=== PATIENT | female | born 1975 | race Hispanic/Latino ===

== ENCOUNTER 2017-07-25 23:18 | Inpatient (IN) | payer OTHER ==
[2017-07-25] MEDS ORDERED: MEPERIDINE HCL 25 MG/0.5 ML IV PRN (23:41)
[2017-07-25] MEDS ORDERED: ONDANSETRON 4 MG/2 ML VIAL IV PRN (23:41)
[2017-07-25 23:57] VITALS: BMI 30.2
[2017-07-26] MEDS: Ringers Lactate 1,000 ML IV SCH ×4 (00:29→23:45)
[2017-07-26] MEDS: PIPER/TAZO/NS 3.375gm 3.375 GM/100 ML BAG IVPB SCH ×4 (01:33→16:51)
[2017-07-26] MEDS ORDERED: PIPER/TAZO/NS 3.375gm 6.750 GM/200 ML BAG ONE (01:39)
[2017-07-26 05:04] LABS: Absolute Lymphocytes (CBC) 2.2 K/uL (0.7-4.9); Absolute Monocytes 1.2 K/uL (0.1-1.3); Absolute Neutrophil 5.8 K/uL (1.8-8.0); Basophils % 0.5 % (0-1.3); Eosinophils % 1.3 % (0-4.4); Hematocrit 33.9 % (36.0-45.0); Lymphocytes % 23.1 % (15.3-44.8); MCH 30.4 pg (27.0-35.0); MCV 91.4 fL (80-100); MPV 9.5 fL (7.6-11.3); RBC Red Blood Cell Count 3.71 M/uL (3.86-4.86)
[2017-07-26 05:25] LABS: ALT/SGPT 42 IU/L (10-60); AST/SGOT 31 IU/L (10-42); Albumin 3.1 g/dL (3.2-5.5); Alkaline Phosphatase 52 IU/L (42-121); Amylase Level 38 U/L (28-100); BUN Blood Urea Nitrogen 14 mg/dL (6-20); Bicarbonate 25 mEq/L (21-31); Bilirubin Direct 0.2 mg/dL (0-0.2); Bilirubin Total 1.1 mg/dL (0.3-1.2); Glomerular Filtration Rate > 90 mL/min (=/>90); Glucose Level 109 mg/dL (65-120); Lipase 21 U/L (22-51); Magnesium 1.8 mg/dL (1.8-2.5); Phosphorus 2.2 mg/dL (2.5-4.3); Potassium 3.8 mEq/L (3.6-5.0); Protein, Total 5.5 g/dL (6.0-8.3); Sodium Level 136 mEq/L (135-145)
[2017-07-26] MEDS ORDERED: BUPIVACAINE 0.5% PF 10 ML VIAL ONE (08:54)
[2017-07-26] MEDS ORDERED: FENTANYL CITR 100 MCG/2 ML ONE ×2 (10:15→11:34)
[2017-07-26] MEDS ORDERED: PROPOFOL 200 MG/20 ML VIAL IV ONE (10:15)
[2017-07-26] MEDS ORDERED: LIDOCAINE 2% MPF 5 ML VIAL ONE (10:15)
[2017-07-26] MEDS ORDERED: ROCURONIUM 50 MG/5 ML VIAL IV ONE (10:15)
[2017-07-26] MEDS ORDERED: KETOROLAC 30 MG/ML INJ ONE (10:38)
[2017-07-26] MEDS ORDERED: DEXAMETHASONE 10 MG/ML VIAL ONE (10:38)
[2017-07-26] MEDS ORDERED: ONDANSETRON 4 MG/2 ML VIAL ONE (10:39)
[2017-07-26] MEDS ORDERED: GLYCOPYRROLATE 0.2 MG/ML SYR ONE (10:48)
[2017-07-26] MEDS ORDERED: NEOSTIGMINE 1 MG/ML -5 ML SYRINGE ONE (10:48)
--- NOTE | 2017-07-26 12:09 | P.OP ---
Emergency Communications Operator: aBrbara BARRETO Preoperative diagnosis: Acute Cholecystitis and Cholelithiasis Postoperative diagnosis: same Primary procedure: Lap Lynne Anesthesia: General Estimated blood loss: 200cc Specimen: gb Findings: as above with Hydrops and extensive inflammation Complications: None Transferred to: Recovery Room Condition: Good
[2017-07-26] MEDS ORDERED: Ringers Lactate 1,000 ML IV ONE ×2 (12:46→13:47)
[2017-07-26] MEDS ORDERED: MEPERIDINE HCL 25 MG/0.5 ML ONE ×3 (12:51→13:11)
[2017-07-26] MEDS ORDERED: ONDANSETRON 4 MG/2 ML VIAL IV PRN (12:59)
[2017-07-26] MEDS ORDERED: MAGNESIUM SULFATE 1 gm IVPB 1 GM/100 ML BAG IV ONE (13:30)
[2017-07-26] MEDS ORDERED: POTASSIUM CL SA 10 MEQ TAB PO ONE (13:30)
--- NOTE | 2017-07-26 13:46 | PREOPHP ---
Date of Admission: 07/25/2017 Chief Complaint: Abdominal pain. History Of Present Illness: The patient is a 42-year-old female, who had midscapular pain and right upper quadrant pain for increasing in severity over 2 days and then she was evaluated with on and was thought to be a musculoskeletal pain; however, she had a fever. She returned, t hey they did an ultrasound and chest x-ray and EKG and the findings were for acute cholecystitis and cholelithiasis. I was contacted. I admitted the patient to our service and started her on antibioti cs and she requires cholecystectomy. She states that she has had some nausea earlier and some fever, but no vomiting, no diarrhea or constipation. No blood in her stool. No dysuria or hematuria. No sore throat, runny nose, cough, headaches, or dizziness. No chest pain and no further fevers. Review of Systems: Otherwise unremarkable. Past Medical History: The patient states that she is prediabetic although she is not taking any sign ificant medications for it. Past Surgical History: Negative. Allergies: NO ALLERGIES. Social History: She does not smoke. Drinks occasionally. Family History: Noncontributory. Physical Examination: Vital Signs: Stable. Her temperature is 98.3, it was 99 last night. She is awake, alert, and orien bernadine x3. Head and Neck: Cranial nerves 2 through 12 grossly within normal limits. No neck masses. No JVD. Throat clear. Neck is supple. Chest: Clear. Heart: S1, S2. Abdomen: Soft, nondistended. Positive bowel sounds. Tenderness in the right upper quadrant. No pe ritonitis. Extremities: Adequately perfused. Nontender. Neuro: Nonfocal. Laboratory Data: Her white count last night was 12,000, today is 9.4. LFT, amylase, lipase, within normal limits. Phosphorus slightly low at 2.2. Ultrasound reviewed, it showed a distended gallbladd er with thickened gallbladder wall and stones. Assessment: Acute cholecystitis and cholelithiasis. Plan: Admit n.p.o., IV fluids, IV antibiotics, to the OR for laparoscopic cholecystectomy, possible open. The patient and understands the risks, benefits, and alternatives, and agrees to proce dure. HALLIE/MODL Voice ID: [id number]
[2017-07-26] MEDS: HYDROCODONE/APAP 7.5/325 MG TAB PO PRN ×2 (15:00→21:35)
--- NOTE | 2017-07-26 23:04 | OP ---
Date of Procedure: 07/26/2017 Surgeon: Jesús Mendoza MD Section Leader Screen Printing: Nadya Manuel, certified LOCKMAKER. Preoperative Diagnosis: Acute cholecystitis and cholelithiasis. Postoperative Diagnosis: Acute cholecystitis and cholelithiasis. Procedure: Laparoscopic cholecystectomy. Estimated Blood Loss: Minimal. Specimen: Gallbladder. Findings: Extensive inflammation, hydrops of the gallbladder. Anesthesia: General. Complications: None. Disposition: The patient tolerated the procedure in stable condition and taken to Recovery in good g eneral condition. Procedure In Detail: The patient was brought to the OR and placed in supine position. General anest hesia begun. The patient was prepped and draped in usual sterile fashion. Marcaine 0.5% was infiltr ated locally. A 15-blade was used to make a 1-cm supraumbilical midline incision. Subcutaneous tiss ues divided. Fascia and plane divided. #1 Vicryl stay suture was placed. Peritoneal cavity was ent ered with blunt dissection. A 12-mm trocar was placed into the peritoneal cavity under direct vision . Pneumoperitoneum was established and then three 5-mm trocars were placed; one in the epigastrium j ust to the right of midline and two in the right subcostal region. Laparoscopy revealed a severely d istended gallbladder with thickened wall. It was aspirated of hydrops. Then fundus retracted superi christiano, infundibulum identified, retracted inferolaterally. Cystic duct and cystic artery were clearly identified with blunt dissection. Clips placed. There was a lot of inflammatory rind present. Onc e the gallbladder was removed from the this rind, there was some oozing noted. Most of it was contro lled with cautery. The gallbladder was removed from the liver bed and then removed through the belly button with the EndoCatch bag. The fascial defect had to be extended because the gallbladder was la rge, filled with stone. Subsequently right upper quadrant was irrigated. There was some bleeding no bernadine and this was thoroughly irrigated until all cautery was used to stop the oozing from the inflamma tory rind that was present on the liver bed. Once adequate control of this was made, I placed 2 Surg icel to be safe and after this, the effluent was clear. There was no evidence of bleeding noted. Th ere was no evidence of bile leakage appreciated. Subsequently, all trocars were removed under direct vision. A #1 Vicryl used to close the fascial defect. Subcutaneous wounds were irrigated. Bleedin g controlled with cautery. A 3-0 chromic used to approximate the subcutaneous tissue and close the s kin. Sterile dressing was applied. The patient was awakened and taken to Recovery in good general c ondition. . /MODL Voice ID: [id number] Report ID: [id number]
[2017-07-27] MEDS: PIPER/TAZO/NS 3.375gm 3.375 GM/100 ML BAG IVPB SCH ×3 (00:45→16:25)
[2017-07-27] MEDS: HYDROCODONE/APAP 7.5/325 MG TAB PO PRN ×2 (01:46→16:24)
[2017-07-27 04:55] LABS: Absolute Lymphocytes (CBC) 0.9 K/uL (0.7-4.9); Absolute Monocytes 1.1 K/uL (0.1-1.3); Basophils % 0.2 % (0-1.3); Hematocrit 35.4 % (36.0-45.0); Lymphocytes % 5.1 % (15.3-44.8); MCH 30.8 pg (27.0-35.0); MCV 90.7 fL (80-100); MPV 9.3 fL (7.6-11.3); Monocytes % 5.9 % (3.3-12.3)
[2017-07-27 05:23] LABS: Blood Morphology Comment NOT SEEN (NOT SEEN); Platelet Estimate ADEQ; Urine White Blood Cell Casts OK
[2017-07-27 05:28] LABS: BUN Blood Urea Nitrogen 8 mg/dL (6-20); Bicarbonate 26 mEq/L (21-31); Glomerular Filtration Rate > 90 mL/min (=/>90); Glucose Level 148 mg/dL (65-120); Magnesium 2.1 mg/dL (1.8-2.5); Phosphorus 1.9 mg/dL (2.5-4.3); Potassium 4.3 mEq/L (3.6-5.0); Sodium Level 134 mEq/L (135-145)
[2017-07-27] MEDS: POTASS/SODIUM PHOSPHATE 1 PKT POWD.PACK PO SCH ×3 (06:15→10:01)
[2017-07-27] MEDS ORDERED: PNEUMOCOCCAL VACCINE 0.5 ML IMVAC ONE (08:00)
[2017-07-27] MEDS: Ringers Lactate 1,000 ML IV SCH ×2 (08:14→15:45)
--- NOTE | 2017-07-27 14:57 | PN ---
Date of Progress Note: 07/27/2017 Subjective: The patient is awake, alert, tolerating diet. The pain is very manageable. She is ambu lating. Objective: Vital Signs: Stable. She is afebrile. Abdomen: Benign. Laboratory Data: Reviewed. White count is 18,000 today with a left shift. H and H are stable. Assessment: Status post laparoscopic cholecystectomy for acute cholecystitis and cholelithiasis. Recommendation: As she still has significant leukocytosis, we will keep her another day for IV antib iotics. Re-evaluate tomorrow and probably we will discharge her home on oral antibiotics. /MODL Voice ID: [id number] Report ID: [id number]
[2017-07-28] MEDS: PIPER/TAZO/NS 3.375gm 3.375 GM/100 ML BAG IVPB SCH ×3 (00:28→16:57)
[2017-07-28] MEDS: Ringers Lactate 1,000 ML IV SCH ×4 (00:28→23:45)
[2017-07-28 04:25] LABS: Absolute Lymphocytes (CBC) 2.6 K/uL (0.7-4.9); Absolute Monocytes 0.9 K/uL (0.1-1.3); Absolute Neutrophil 7.4 K/uL (1.8-8.0); Basophils % 0.9 % (0-1.3); Eosinophils % 0.3 % (0-4.4); Hematocrit 32.5 % (36.0-45.0); Lymphocytes % 23.8 % (15.3-44.8); MCH 30.9 pg (27.0-35.0); MCV 90.4 fL (80-100); MPV 8.9 fL (7.6-11.3); Monocytes % 8.2 % (3.3-12.3); RBC Red Blood Cell Count 3.59 M/uL (3.86-4.86)
[2017-07-28 05:07] LABS: BUN Blood Urea Nitrogen 10 mg/dL (6-20); Bicarbonate 27 mEq/L (21-31); Glomerular Filtration Rate > 90 mL/min (=/>90); Glucose Level 107 mg/dL (65-120); Magnesium 1.9 mg/dL (1.8-2.5); Potassium 4.1 mEq/L (3.6-5.0); Sodium Level 137 mEq/L (135-145)
[2017-07-28] MEDS ORDERED: POTASS/SODIUM PHOSPHATE 1 PKT POWD.PACK PO SCH ×2 (06:19→07:00)
[2017-07-28] MEDS: POTASS/SODIUM PHOSPHATE 1 PKT POWD.PACK PO SCH ×3 (07:00→10:41)
[2017-07-28] MEDS: HYDROCODONE/APAP 7.5/325 MG TAB PO PRN ×2 (08:25→18:18)
[2017-07-28] MEDS ORDERED: ACETAMINOPHEN 500 MG TAB PO PRN (11:04)
--- NOTE | 2017-07-28 15:49 | PN ---
Date of Progress Note: 07/28/2017 Subjective: The patient is tolerating the diet. No real abdominal pain. No nausea. No vomiting. However, she has had low-grade fevers. Objective: Vital Signs: Stable. Temperature was 99.5 this morning. Laboratory Data: Her white count has come down to 11.1. There is no left shift anymore. Assessment: Status post laparoscopic cholecystectomy for acute cholecystitis and cholelithiasis. Recommendations: We will keep the patient 1 more day for IV antibiotics as her clinical condition mccullough s markedly improved. However, the low-grade fever is a concern, and I will keep her on IV antibiotic s today. We will re-evaluate tomorrow and probably send her home on oral antibiotics. /MODL Voice ID: [id number] Report ID: [id number]
[2017-07-28 17:36] VITALS: O2SAT 96
[2017-07-29] MEDS: Ringers Lactate 1,000 ML IV SCH ×2 (00:49→07:45)
[2017-07-29] MEDS: PIPER/TAZO/NS 3.375gm 3.375 GM/100 ML BAG IVPB SCH ×2 (00:52→08:20)
[2017-07-29 06:04] LABS: Absolute Lymphocytes (CBC) 2.4 K/uL (0.7-4.9); Absolute Monocytes 0.8 K/uL (0.1-1.3); Absolute Neutrophil 5.1 K/uL (1.8-8.0); Basophils % 0.7 % (0-1.3); Eosinophils % 0.7 % (0-4.4); Hematocrit 34.7 % (36.0-45.0); Lymphocytes % 28.2 % (15.3-44.8); MCH 30.5 pg (27.0-35.0); MPV 8.7 fL (7.6-11.3); Monocytes % 9.3 % (3.3-12.3); RBC Red Blood Cell Count 3.81 M/uL (3.86-4.86)
[2017-07-29 06:17] LABS: BUN Blood Urea Nitrogen 9 mg/dL (6-20); Bicarbonate 28 mEq/L (21-31); Glomerular Filtration Rate > 90 mL/min (=/>90); Glucose Level 99 mg/dL (65-120); Phosphorus 3.9 mg/dL (2.5-4.3); Potassium 4.2 mEq/L (3.6-5.0); Sodium Level 135 mEq/L (135-145)
[2017-07-29 09:12] VITALS: BP 119/73; TEMP 99.1
--- NOTE | 2017-07-30 03:27 | DS ---
Date of Discharge: 07/29/2017 Admitting Diagnosis: Acute cholecystitis and cholelithiasis. Discharge Diagnosis: Acute cholecystitis and cholelithiasis. Procedure Performed: Laparoscopic cholecystectomy. Hospital Course: The patient is a 42-year-old female, who underwent the aforementioned procedure. P ostoperatively, however, she had significant leukocytosis, was kept for IV antibiotics. She did also have low grade fever. They have all improved and today, she is afebrile. She is tolerating diet an d ambulating. White count is normal. Pain are controlled on p.o. pain medication. Therefore, the p atient will be discharged home. Disposition: Home. Condition: Stable. Discharge Instructions: Resume home medications and diet. Activity as tolerated. No heavy lifting. Remove outer dressing in a.m. Shower. Keep wound clean and dry. Follow up in my office in 2 week s. Call for appointment. Tylenol No. 3 one tablet p.o. q.4 p.r.n. pain, Cipro 500 mg p.o. q.12. /MODL Voice ID: [id number] Report ID: [id number]
== END 2017-07-29 11:27 | disposition home or self-care (01) | DRG 418 ==
LOC: 4TH 23:18
PROVIDERS: ADMIT Surgery; ATTEND Surgery
PROC: 0FT44ZZ Resection of Gallbladder, Percutaneous Endoscopic Approach (ICD-10-PCS; principal; 2017-07-26 10:00)
DX: K80.00 Calculus of gallbladder with acute cholecystitis without obstruction (principal); K82.1 Hydrops of gallbladder; D72.829 Elevated white blood cell count, unspecified
CPT/HCPCS: 36415; 80048; 80076; 82150; 83690; 83735; 84100; 85025; 88304; 88305; J1100; J2175; J2405; J2543; J2710; J3010; J3475

== ENCOUNTER 2020-06-14 08:00 | Emergency (ER) | payer OTHER ==
[2020-06-14 11:23] LABS: SARS-COV-2 RT PCR POSITIVE (NEGATIVE)
--- NOTE | 2020-06-14 11:27 | ER ---
Nurse's Notes [facility] Name: Nery Robertson Age: 45 yrs Sex: Female : 1975 Arrival Date: 06/14/2020 Time: 08:01 Bed 19 Private MD: Diagnosis: Coronavirus infection, unspecified Presentation: 06/14 08:42 Chief complaint: Patient states: body aches, cough, headache, and fever that began last aa5 night. Pt reports she took Aleve today at 0500. 08:42 Onset of symptoms was May 2020. aa5 08:42 Acuity: DANIELLE 4 aa5 08:42 Method Of Arrival: Ambulatory aa5 08:42 Coronavirus screen: Client presents with at least one sign or symptom that may indicate aa5 coronavirus-19. Standard/surgical mask placed on the client. Provider contacted for isolation considerations. Ebola Screen: Patient negative for fever greater than or equal to 101.5 degrees Fahrenheit, and additional compatible Ebola Virus Disease symptoms. Initial Sepsis Screen: Does the patient meet any 2 criteria? No. Patient's initial sepsis screen is negative. Does the patient have a suspected source of infection? No. Patient's initial sepsis screen is negative. Risk Assessment: Do you want to hurt yourself or someone else? Patient reports no desire to harm self or others. Triage Assessment: 09:00 General: Appears in no apparent distress. uncomfortable, ill, Behavior is cooperative, bp appropriate for age, anxious. Pain: Complains of pain in face. EENT: Nares with drainage noted. Neuro: Reports headache. Cardiovascular: No deficits noted. Respiratory: Reports cough that is. GI: No signs and/or symptoms were reported involving the gastrointestinal system. : No signs and/or symptoms were reported regarding the genitourinary system. Derm: No deficits noted. Musculoskeletal: No deficits noted. Historical: - Allergies: 08:42 No Known Allergies; aa5 - Immunization history:: Adult Immunizations up to date. - Family history:: not pertinent. - Social history:: Smoking status: Patient denies any tobacco usage or history of. - Hospitalizations: : No recent hospitalization is reported. Screenin:00 Abuse screen: Denies threats or abuse. Nutritional screening: No deficits noted. bp Tuberculosis screening: No symptoms or risk factors identified. Fall Risk None identified. Assessment: 09:00 General: SEE TRIAGE NOTE. bp 11:00 Reassessment: No changes from previously documented assessment. Patient and/or family bp updated on plan of care and expected duration. Pain level reassessed. 12:06 Reassessment: PT D/C HOME AMBULATORY, DX WITH COVID. bp Vital Signs: 08:42 BP 104 / 66; Pulse 85; Resp 18 S; Temp 99.7(O); Pulse Ox 100% on R/A; aa5 09:45 BP 119 / 82; Pulse 80; Resp 17; Temp 99.4(O); Pulse Ox 99% on R/A; mh5 10:48 BP 127 / 95; Pulse 75; Resp 17; Temp 99.5(O); Pulse Ox 99% on R/A; mh5 11:27 BP 113 / 72; Pulse 82; Resp 16; Pulse Ox 98% ; bp NIH Stroke Scale Scores: 09:00 NIHSS Score: 0 bp ED Course: 08:01 Patient arrived in ED. ag5 08:42 Balwinder Souza, RN is Primary Nurse. bp 08:42 Arm band placed on Patient placed in an exam room, on a stretcher. aa5 08:43 Nate Perez MD is Attending Physician. rn 09:03 Triage completed. aa5 09:45 Patient has correct armband on for positive identification. Bed in low position. Call 5 light in reach. Pulse ox on. NIBP on. 09:48 COVID swab sent to lab. Flu and/or RSV swab sent to lab. mh5 12:00 No provider procedures requiring assistance completed. Patient did not have IV access bp during this emergency room visit. Administered Medications: No medications were administered Outcome: 11:27 Discharge ordered by . rn 12:00 Discharged to home ambulatory. bp 12:00 Condition: stable 12:00 Discharge instructions given to patient, Instructed on discharge instructions, follow up and referral plans. medication usage, Demonstrated understanding of instructions, follow-up care, medications, Prescriptions given X 1. 12:08 Patient left the ED. bp NIH Stroke Scale - NIH Stroke Score Date: 06/14/2020 Time: 09:00 Total Score = 0 1a. Level of Consciousness (LOC) - 0(Alert) 1b. Level of Consciousness (LOC) (Year \T\ Age) - 0(Both) 1c. LOC Commands (Open \T\ Closes Eyes/Engineering Lab Technician) - 0(Both) 2. Best Gaze (Lateral Gaze Paresis) - 0(Normal) 3. Visual Field Loss - 0(No visual loss) 4. Facial Palsy - 0(Normal) 5a. Left Arm: Motor (10-second hold) - 0(No drift) 5b. Right Arm: Motor (10-second hold) - 0(No drift) 6a. Left Leg: Motor (5-second hold - always test supine) - 0(No drift) 6b. Right Leg: Motor (5-second hold - always test supine) - 0(No drift) 7. Limb Ataxia (finger/nose \T\ heel/steiner - test with eyes open) - 0(Absent) 8. Sensory Loss (pinprick arms/legs/face) - 0(Normal) 9. Best Language: Aphasia (description/naming/reading) - 0(No aphasia) 10. Dysarthria (speech clarity - read or repeat words) - 0(Normal) 11. Extinction and Inattention (visual/tactile/auditory/spatial/personal) - 0(No abnormality) Initials: bp Signatures: Nate Perez MD MD rn Calderon, Audri, RN RN aa5 Corrina Terry 5 Balwinder Souza RN RN bp Gaskin, Ajare ag5 Corrections: (The following items were deleted from the chart) 09:08 08:42 Chief complaint: Patient states: body aches, cough, headache that began aa5 last night. aa5
--- NOTE | 2020-06-14 11:28 | EDPHYS ---
Physician Documentation [facility] Name: Nery Robertson Age: 45 yrs Sex: Female : 1975 Arrival Date: 06/14/2020 Time: 08:01 Bed 19 Private MD: ED Physician Nate Perez HPI: 06/14 09:49 This 45 yrs old Female presents to ER via Ambulatory with complaints of R/O rn COVID. 09:49 The patient or guardian reports cough, flu symptoms, low-grade fever, myalgias. rn 09:49 Onset: The symptoms/episode began/occurred yesterday. Severity of symptoms: At their rn worst the symptoms were mild, in the emergency department the symptoms are unchanged. Modifying factors: The symptoms are alleviated by nothing, the symptoms are aggravated by nothing. Associated signs and symptoms: Pertinent positives: fever, rhinorrhea. The patient has not experienced similar symptoms in the past. The patient has not recently seen a physician. Reports fever, muscle aches, fatigue, cough, recently exposed to someone with COVID + test. No loss of taste or smell. No sob. No vomiting/diarrhea. . Historical: - Allergies: 08:42 No Known Allergies; aa5 - Immunization history:: Adult Immunizations up to date. - Family history:: not pertinent. - Social history:: Smoking status: Patient denies any tobacco usage or history of. - Hospitalizations: : No recent hospitalization is reported. ROS: 09:49 Constitutional: + fever and chills Eyes: Negative for injury, pain, redness, and patternmaker wood, ENT: + congestion Neck: Negative for injury, pain, and swelling, Cardiovascular: Negative for chest pain, palpitations, and edema, Respiratory: + cough, neg for sob Abdomen/GI: Negative for abdominal pain, nausea, vomiting, diarrhea, and constipation, MS/Extremity: Negative for injury and deformity, Skin: Negative for injury, rash, and discoloration, Neuro: Negative for numbness, tingling, and seizure. Exam: 09:49 Constitutional: This is a well developed, well nourished patient who is awake, alert, rn and in no acute distress. Head/Face: Normocephalic, atraumatic. Cardiovascular: Regular rate and rhythm Respiratory: Speaking full sentences, unlabored Skin: No cyanosis Neuro: Awake and alert, GCS 15 Vital Signs: 08:42 BP 104 / 66; Pulse 85; Resp 18 S; Temp 99.7(O); Pulse Ox 100% on R/A; aa5 09:45 BP 119 / 82; Pulse 80; Resp 17; Temp 99.4(O); Pulse Ox 99% on R/A; mh5 10:48 BP 127 / 95; Pulse 75; Resp 17; Temp 99.5(O); Pulse Ox 99% on R/A; mh5 11:27 BP 113 / 72; Pulse 82; Resp 16; Pulse Ox 98% ; bp NIH Stroke Scale Scores: 09:00 NIHSS Score: 0 bp MDM: 08:43 Patient medically screened. rn 11:26 Differential Diagnosis: Bronchitis Influenza Upper Respiratory Infection Viral Syndrome rn Pneumonia. Data reviewed: vital signs, nurses notes, lab test result(s), and as a result, I will discharge patient. Counseling: I had a detailed discussion with the patient and/or guardian regarding: the historical points, exam findings, and any diagnostic results supporting the discharge/admit diagnosis, lab results, the need for outpatient follow up, to return to the emergency department if symptoms worsen or persist or if there are any questions or concerns that arise at home. Special discussion: I discussed with the patient/guardian in detail that at this point there is no indication for admission to the hospital. It is understood, however, that if the symptoms persist or worsen the patient needs to return immediately for re-evaluation. ED course: No oxygen requirement, COVID +, will dc home with steroids and isolation.. 06/14 11:24 Order name: COVID-19/FLU A+B EDMS Administered Medications: No medications were administered Disposition: 06/14/20 11:27 Discharged to Home. Impression: Coronavirus infection, unspecified. - Condition is Stable. - Discharge Instructions: COVID-19. - Prescriptions for Prednisone 20 mg Oral Tablet - take 1 tablet by ORAL route as directed for 14 days Take 2 tablets by mouth daily for 7 days, followed by 1 tablet by mouth daily for 7 days, total of 14 days.; 21 tablet. - Medication Reconciliation Form, Thank You Letter, Antibiotic Education, Prescription Opioid Use, Work release form form. - Follow up: Private Physician; When: As needed; Reason: Recheck today's complaints, Re-evaluation by your physician. - Problem is new. - Symptoms have improved. NIH Stroke Scale - NIH Stroke Score Date: 06/14/2020 Time: 09:00 Total Score = 0 1a. Level of Consciousness (LOC) - 0(Alert) 1b. Level of Consciousness (LOC) (Year \T\ Age) - 0(Both) 1c. LOC Commands (Open \T\ Closes Eyes/[place] Frame Builder) - 0(Both) 2. Best Gaze (Lateral Gaze Paresis) - 0(Normal) 3. Visual Field Loss - 0(No visual loss) 4. Facial Palsy - 0(Normal) 5a. Left Arm: Motor (10-second hold) - 0(No drift) 5b. Right Arm: Motor (10-second hold) - 0(No drift) 6a. Left Leg: Motor (5-second hold - always test supine) - 0(No drift) 6b. Right Leg: Motor (5-second hold - always test supine) - 0(No drift) 7. Limb Ataxia (finger/nose \T\ heel/steiner - test with eyes open) - 0(Absent) 8. Sensory Loss (pinprick arms/legs/face) - 0(Normal) 9. Best Language: Aphasia (description/naming/reading) - 0(No aphasia) 10. Dysarthria (speech clarity - read or repeat words) - 0(Normal) 11. Extinction and Inattention (visual/tactile/auditory/spatial/personal) - 0(No abnormality) Initials: bp Signatures: Dispatcher [employer] EDMS Nate Perez MD MD rn Calderon, Audri, RN RN aa5 Balwinder Souza, RN RN bp Corrections: (The following items were deleted from the chart) 10:19 08:58 Influenza Screen (A \T\ B)+BA.LAB.BRZ ordered. EDMS EDMS 10:19 08:58 CORONAVIRUS+MR.LAB.BRZ ordered. EDSC EDMS 12:08 11:27 06/14/2020 11:27 Discharged to Home. Impression: Coronavirus infection, bp unspecified. Condition is Stable. Forms are Medication Reconciliation Form, Thank You Letter, Antibiotic Education, Prescription Opioid Use. Follow up: Private Physician; When: As needed; Reason: Recheck today's complaints, Re-evaluation by your physician. Problem is new. Symptoms have improved. rn
[2020-06-14 12:28] VITALS: TEMP 99.5
[2020-06-14 12:30] VITALS: BP 113/72; O2SAT 98
== END 2020-06-14 12:08 | disposition home or self-care (01) ==
LOC: ER 08:00
DX: U07.1 COVID-19 (principal)
CPT/HCPCS: 0240U; 99283

== ENCOUNTER 2020-06-24 01:49 | Inpatient (IN) | payer OTHER ==
[2020-06-24 02:35] LABS: Hematocrit 42.8 % (36.0-45.0); RBC Red Blood Cell Count 4.61 M/uL (3.86-4.86)
[2020-06-24] MEDS ORDERED: ACETAMINOPHEN 500 MG TAB ONE (02:35)
[2020-06-24] MEDS ORDERED: dexAMETHasone 10 MG/ML VIAL ONE (02:35)
[2020-06-24 02:36] LABS: Absolute Lymphocytes (CBC) 0.7 K/uL (0.7-4.9); Basophils % 0.2 % (0-1.3); Lymphocytes % 11.7 % (15.3-44.8); MPV 8.5 fL (7.6-11.3)
[2020-06-24] MEDS ORDERED: NA CHLORIDE 0.9% 2,000 ML ONE (02:36)
[2020-06-24 02:40] LABS: Protime INR 0.93
[2020-06-24] MEDS ORDERED: ALBUTEROL INHALER 60 PUFF/8 GM IH ONE (02:47)
[2020-06-24 02:50] LABS: ALT/SGPT 26 U/L (12-78); AST/SGOT 35 U/L (15-37); Albumin 3.1 g/dL (3.4-5.0); Alkaline Phosphatase 68 U/L (45-117); Amylase 49 U/L (25-115); BUN Blood Urea Nitrogen 17 mg/dL (7-18); Bicarbonate 26 mmol/L (21-32); Bilirubin Direct < 0.1 mg/dL (0-0.2); Bilirubin Total 0.2 mg/dL (0.2-1.0); CKMB Creatine Kinase MB < 1.0 ng/mL (0.3-3.6); Creatine Phosphokinase 41 U/L (26-192); Glucose Level 144 mg/dL (74-106); Lipase 124 U/L (73-393); Potassium 4.3 mmol/L (3.5-5.1); Protein, Total 8.5 g/dL (6.4-8.2); Sodium Level 145 mmol/L (136-145); Troponin (Emerg Dept Use Only) < 0.02 ng/mL (0.0-0.045)
[2020-06-24 03:04] LABS: Ferritin 224.9 ng/mL (8-388)
--- NOTE | 2020-06-24 03:14 | P.HP ---
Certification for Inpatient Patient admitted to: Inpatient With expected LOS: >2 Midnights Patient will require the following post-hospital care: None Practitioner: I am a practitioner with admitting privileges, knowledge of patient current condition, hospital course, and medical plan of care. Services: Services provided to patient in accordance with Admission requirements found in Title 42 Section 412.3 of the Code of Federal Regulations Patient History Date of Service: 06/24/20 History of Present Illness: 45-year-old female with history of diabetes mellitus type 2 not on any medications presents emergency department for shortness of breath. Patient diagnosed with foreman virus on 06/14/2020 with worsening shortness of breath over the course the last couple days. Upon arrival to the emergency department patient hypoxic 77% on room air, placed on BiPAP which she is tolerating well. Workup in the ED significant for initial lactic acid 4.9, patient did receive sepsis bolus in the emergency department D-dimer 1000 ED given full dose Lovenox in the ER pending CT PE protocol. ED provider wishes to admit patient for further evaluation and management. Allergies No Known Allergies Allergy (Verified 07/25/17 23:55) Home Medications: Dextroamphetamine/Amphetamine [Dextroamp-Amphetamin 20 mg Tab] 30 mg PO DIRECTED 07/25/17 Liraglutide [Victoza 2-Dustin] 1.6 mg SQ DAILY 07/25/17 Thyroid,Pork [Lucas Thyroid] 120 mg PO DAILY 07/25/17 Cyclobenzaprine HCl 10 mg PO TID 07/26/17 Ketorolac Tromethamine 10 mg PO TID 07/26/17 Triamterene/Hctz [Maxzide 37.5 mg-25 mg Tablet*] 2 tab PO DAILY PRN 07/26/17 - Past Medical/Surgical History Diabetic: Yes -: Hypothyroidism -: Diabetes -: Attention Deficit Disorder -: tubal ligation (2005) Psychosocial/ Personal History: Patient is employed, lives with her 3 children - Social History Smoking Status: Never smoker Alcohol use: Yes CD- Drugs: No Caffeine use: Yes Place of Residence: Home Review of Systems 10-point ROS is otherwise unremarkable General: Fever, Chills, Weakness, Malaise Respiratory: Cough, Shortness of Breath, SOB with Excertion Physical Examination - Physical Exam General: Alert, In no apparent distress, Oriented x3 HEENT: Atraumatic, PERRLA, Mucous membr. moist/pink, EOMI, Sclerae nonicteric Neck: Supple, 2+ carotid pulse no bruit, No LAD, Without JVD or thyroid abnormality Respiratory: Diminished, Other (Dyspnea, tachypnea) Cardiovascular: Regular rate/rhythm, Normal S1 S2 Capillary refill: <2 Seconds Gastrointestinal: Normal bowel sounds, No tenderness, No masses, No rebound Musculoskeletal: No tenderness Integumentary: No rashes Neurological: Normal speech, Normal strength at 5/5 x4 extr, Normal tone, Normal affect - Studies Laboratory Data (last 24 hrs) 06/24/20 02:12: PT 10.7, INR 0.93, APTT 25.3 06/24/20 02:12: WBC 6.10, Hgb 14.1, Hct 42.8, Plt Count 247 06/24/20 02:12: Sodium 145, Potassium 4.3, BUN 17, Creatinine 0.80, Glucose 144 H, Total Bilirubin 0.2, AST 35, ALT 26, Alkaline Phosphatase 68, Amylase 49, Lipase 124 Assessment and Plan - Plan Assessment Acute hypoxic respiratory failure secondary to COVID-19 pneumonia Diabetes mellitus type 2 Plan Acute hypoxic respiratory failure secondary to COVID-19 pneumonia: Trend CRP, ferritin levels, continue with IV steroids, oral supplementation. Pulmonology consult in place. Patient declined to receive Ivermectin. D-dimer significantly elevated, CT PE protocol pending, continue full-dose anticoagulation given full dose Lovenox in the ER, continue with Eliquis. Anticipate hospitalization greater than 2 days. Diabetes mellitus type 2: ADA diet, a.c. HS Accu-Cheks, sliding scale insulin therapy. A1c with morning labs. Patient not taking any medications at home. Discharge Plan: Home Plan to discharge in: Greater than 2 days - Advance Directives Does patient have a Living Will: No Does patient have a Durable POA for Healthcare: No - Code Status/Comfort Care Code Status Assessed: Yes (Full code) Critical Care: No Time Spent Managing Pts Care (In Minutes): 55
[2020-06-24] MEDS ORDERED: NA CHLORIDE 0.9% 250 ML ONE (03:15)
[2020-06-24] MEDS ORDERED: AZITHROMYCIN 500 MG INJ IVPB ONE (03:15)
[2020-06-24] MEDS ORDERED: CEFTRIAXONE/SWI 1gm 1 GM/10 ML SYR ONE (03:15)
[2020-06-24] MEDS ORDERED: ENOXAPARIN 80 MG/0.8 ML SQ ONE (03:19)
[2020-06-24] MEDS ORDERED: HYDROCODONE/APAP 5/325 MG TAB PO PRN (04:03)
[2020-06-24] MEDS ORDERED: ACETAMINOPHEN 500 MG TAB PO PRN (04:03)
[2020-06-24] MEDS ORDERED: D50W 25 GM/50 ML SYRINGE IV PRN (04:03)
[2020-06-24] MEDS ORDERED: ONDANSETRON 4 MG/2 ML VIAL IV PRN (04:03)
[2020-06-24] MEDS ORDERED: GLUCAGON 1 MG/VIAL IM PRN (04:03)
[2020-06-24 04:05] LABS: Urine Specific Gravity 1.025 (1.005-1.030)
--- NOTE | 2020-06-24 04:22 | EDPHYS ---
Physician Documentation [facility] Name: Nery Robertson Age: 45 yrs Sex: Female : 1975 Arrival Date: 06/24/2020 Time: 01:53 Bed 7 Private MD: ED Physician Asa Desouza HPI: 06/24 02:16 This 45 yrs old Female presents to ER via Wheelchair with complaints of mh7 Shortness Of Breath, COVID+. 02:17 The patient has shortness of breath at rest, with light activity. Onset: The mh7 symptoms/episode began/occurred 2 day(s) ago. Duration: The symptoms are continuous, and are steadily getting worse. The patient's shortness of breath is aggravated by coughing, exertion, light activity, is alleviated by nothing. Associated signs and symptoms: Pertinent positives: non-productive cough, Pertinent negatives: chest pain, productive cough, diaphoresis, dizziness, fever, hemoptysis, loss of consciousness, nausea, numbness in extremities, visual changes, vomiting. Severity of symptoms: At their worst the symptoms were moderate last night, in the emergency department the symptoms are unchanged. Tested positive for COVID on 06/13/20. 02:17 Associated signs and symptoms: Pertinent positives: fever, Pertinent negatives:. 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 - Social history:: Smoking status: Patient denies any tobacco usage or history of. Patient uses alcohol, occasionally. Patient/guardian denies using street drugs, IV drugs. ROS: 02:17 Eyes: Negative for injury, pain, redness, and discharge, ENT: Negative for injury, mh7 pain, and discharge, Neck: Negative for injury, pain, and swelling, Cardiovascular: Negative for chest pain, palpitations, and edema, Abdomen/GI: Negative for abdominal pain, nausea, vomiting, diarrhea, and constipation, Back: Negative for injury and pain, : Negative for injury, bleeding, discharge, and swelling, MS/Extremity: Negative for injury and deformity, Skin: Negative for injury, rash, and discoloration, Neuro: Negative for headache, weakness, numbness, tingling, and seizure, Psych: Negative for depression, anxiety, suicide ideation, homicidal ideation, and hallucinations, Allergy/Immunology: Negative for hives, rash, and allergies, Endocrine: Negative for neck swelling, polydipsia, polyuria, polyphagia, and marked weight changes, Hematologic/Lymphatic: Negative for swollen nodes, abnormal bleeding, and unusual bruising. Exam: 02:17 Head/Face: Normocephalic, atraumatic. Eyes: Pupils equal round and reactive to light, mh7 extra-ocular motions intact. Lids and lashes normal. Conjunctiva and sclera are non-icteric and not injected. Cornea within normal limits. Periorbital areas with no swelling, redness, or edema. Neck: Trachea midline, no thyromegaly or masses palpated, and no cervical lymphadenopathy. Supple, full range of motion without nuchal rigidity, or vertebral point tenderness. No Meningismus. Chest/axilla: Normal chest wall appearance and motion. Nontender with no deformity. No lesions are appreciated. 02:17 Abdomen/GI: Soft, non-tender, with normal bowel sounds. No distension or tympany. No guarding or rebound. No evidence of tenderness throughout. Back: No spinal tenderness. No costovertebral tenderness. Full range of motion. Skin: Warm, dry with normal turgor. Normal color with no rashes, no lesions, and no evidence of cellulitis. MS/ Extremity: Pulses equal, no cyanosis. Neurovascular intact. Full, normal range of motion. Neuro: Awake and alert, GCS 15, oriented to person, place, time, and situation. Cranial nerves II-XII grossly intact. Motor strength 5/5 in all extremities. Sensory grossly intact. Cerebellar exam normal. Normal gait. Psych: Awake, alert, with orientation to person, place and time. Behavior, mood, and affect are within normal limits. 02:17 Constitutional: The patient appears alert, awake, obviously ill. 02:17 Cardiovascular: Rate: tachycardic, Rhythm: regular, Pulses: no pulse deficits are appreciated, Heart sounds: normal, normal S1and S2, Edema: is not appreciated, JVD: is not appreciated. 02:17 Respiratory: mild respiratory distress is noted, Respirations: tachypnea, that is mild, Breath sounds: rhonchi, that are moderate, are scattered, Respiratory rate: 27 Vital Signs: 02:00 BP 149 / 93; Pulse 110; Resp 27; Temp 102; Pulse Ox 77% on R/A; Weight 80.74 kg; Height mg2 5 ft. 7 in. (170.18 cm); 02:34 BP 134 / 94; Pulse 102; Resp 25; Pulse Ox 100% on BiPAP; mg2 03:59 BP 112 / 75; Pulse 94; Resp 23; Temp 99.5; Pulse Ox 99% on 50% BiPAP; mg2 02:00 Body Mass Index 27.88 (80.74 kg, 170.18 cm) mg2 MDM: 04:18 Differential diagnosis: Anemia Anxiety Reaction asthma, Bronchitis CHF exacerbation, [facility] Chronic Obstructive Pulmonary Disease Myocardial Infarction pneumonia, Pneumothorax Psychogenic pulmonary edema, Pulmonary Embolism reactive airway disease. Data reviewed: vital signs, nurses notes, old medical records, lab test result(s), CBC, electrolytes, urinalysis, EKG, radiologic studies, CT scan, plain films. Data interpreted: Pulse oximetry: on BiPAP is 100 %. Interpretation: acceptable. Counseling: I had a detailed discussion with the patient and/or guardian regarding: the historical points, exam findings, and any diagnostic results supporting the discharge/admit diagnosis, lab results, radiology results, the need for further work-up and treatment in the hospital. Response to treatment: the patient's symptoms have markedly improved after treatment. 04:21 Patient medically screened. [facility] 06/24 02:07 Order name: Amylase, Serum [facility] 06/24 02:07 Order name: Basic Metabolic Panel [facility] 06/24 02:07 Order name: Blood Culture Adult (2) [facility] 06/24 02:07 Order name: CBC with Diff [facility] 06/24 02:07 Order name: Ckmb [facility] 06/24 02:07 Order name: CPK [facility] 06/24 02:07 Order name: Lactate [facility] 06/24 02:07 Order name: LFT's [facility] 06/24 02:07 Order name: Lipase [facility] 06/24 02:07 Order name: Procalcitonin [facility] 06/24 02:07 Order name: Protime (+inr) [facility] 06/24 02:07 Order name: Ptt, Activated [facility] 06/24 02:07 Order name: Troponin (emerg Dept Use Only) 7 06/24 02:07 Order name: Urine Microscopic Only 7 06/24 02:22 Order name: CRP la1 06/24 02:22 Order name: Ferritin la1 06/24 02:22 Order name: DD la1 06/24 02:41 Order name: Glucose, Ancillary Testing; Complete Time: 02:47 EDMS 06/24 02:46 Order name: Protime (+INR); Complete Time: 02:47 EDMS 06/24 02:46 Order name: PTT, Activated Partial Thromb; Complete Time: 02:47 EDMS 06/24 02:47 Order name: CBC with Automated Diff; Complete Time: 02:53 EDMS 06/24 02:50 Order name: Basic Metabolic Panel; Complete Time: 02:53 EDMS 06/24 02:50 Order name: Liver (Hepatic) Function; Complete Time: 02:53 EDMS 06/24 02:50 Order name: Creatine Phosphokinase; Complete Time: 02:53 EDMS 06/24 02:50 Order name: CKMB Creatine Kinase MB; Complete Time: 02:53 EDMS 06/24 02:50 Order name: Troponin (Emerg Dept Use Only); Complete Time: 02:53 EDMS 06/24 02:50 Order name: Amylase; Complete Time: 02:53 EDMS 06/24 02:50 Order name: Lipase; Complete Time: 02:53 EDMS 06/24 02:52 Order name: Lactate; Complete Time: 02:53 EDMS 06/24 02:54 Order name: D-Dimer; Complete Time: 02:55 EDMS 06/24 02:07 Order name: Chest Single View XRAY 06/24 02:07 Order name: Accucheck; Complete Time: 02:25 mh7 06/24 02:07 Order name: Cardiac monitoring; Complete Time: 02:25 mh7 06/24 02:07 Order name: EKG - Nurse/Tech; Complete Time: 02:25 mh7 06/24 02:07 Order name: IV Saline Lock - Large Bore; Complete Time: 02:25 mh7 06/24 02:07 Order name: Labs collected and sent; Complete Time: 02:25 mh7 06/24 02:07 Order name: O2 Per Protocol; Complete Time: 02:25 mh7 06/24 02:07 Order name: O2 Sat Monitoring; Complete Time: 02:25 7 06/24 02:07 Order name: Urine Dipstick-Ancillary (obtain specimen); Complete Time: 04:05 [facility] 06/24 02:57 Order name: CT Chest For PE Angio [facility] 06/24 03:05 Order name: C-Reactive Protein; Complete Time: 03:07 EDMS 06/24 03:05 Order name: Ferritin; Complete Time: 03:07 EDMS 06/24 03:07 Order name: Procalcitonin; Complete Time: 03:10 EDMS 06/24 03:40 Order name: BIPAP tt3 06/24 03:57 Order name: Urine Dipstick--Ancillary (enter results) tt3 06/24 03:57 Order name: Urine --Ancillary (enter results) tt3 06/24 04:06 Order name: Urine --Ancillary; Complete Time: 04:47 EDMS Administered Medications: 02:24 Drug: Decadron - Dexamethasone 6 mg Route: IVP; Site: right antecubital; mg2 03:59 Follow up: Response: No adverse reaction mg2 02:24 Drug: Tylenol 1000 mg Route: PO; mg2 03:58 Follow up: Response: No adverse reaction mg2 02:25 Drug: NS 0.9% (30 ml/kg) 30 ml/kg Route: IV; Rate: bolus; Site: right antecubital; mg2 03:59 Follow up: Response: No adverse reaction; IV Status: Completed infusion; IV Intake: mg2 2000ml 02:36 Drug: Albuterol HFA Inhaler 2 puffs Route: Inhalation; mg2 03:00 Drug: Rocephin - (cefTRIAXone) 1 grams Route: IVPB; Infused Over: 30 mins; Site: right rr5 antecubital; 03:58 Follow up: Response: No adverse reaction; IV Status: Completed infusion mg2 03:03 Drug: Zithromax 500 mg Route: IVPB; Infused Over: 1 hrs; Site: left forearm; mg2 03:03 Drug: Lovenox 1 mg/kg Route: Sub-Q; Site: right lower abdomen; mg2 03:58 Follow up: Response: No adverse reaction mg2 Disposition: 06/24/20 04:21 Hospitalization ordered by Corby Parra for Inpatient Admission. Preliminary diagnosis are COVID Pneumonia, Hypoxia. - Bed requested for Telemetry/MedSurg (Inpatient). - Status is Inpatient Admission. mg2 - Condition is Stable. - Problem is new. - Symptoms have improved. Signatures: Dispatcher [employer] EDMS Arie Adhikari, CLERICAL ADMINISTRATIVE ASSISTANT-C CLERICAL ADMINISTRATIVE ASSISTANT-Cla1 Angelica Ramsey, RN RN cg Coy Simon, RN RN mg2 Can Wilburn RN RN rr5 Asa Desouza MD MD [facility] Corrections: (The following items were deleted from the chart) 04:21 04:21 Hospitalization Ordered by Corby Parra DO for Inpatient Admission. Preliminary cg diagnosis is COVID Pneumonia; Hypoxia. Bed requested for Telemetry/MedSurg (Inpatient). Status is Inpatient Admission. Condition is Stable. Problem is new. Symptoms have improved. 7 04:24 04:21 06/24/2020 04:21 Hospitalization Ordered by Corby Parra DO for Inpatient mg2 Admission. Preliminary diagnosis is COVID Pneumonia; Hypoxia. Bed requested for Telemetry/MedSurg (Inpatient). Status is Inpatient Admission. Condition is Stable. Problem is new. Symptoms have improved. cg
--- NOTE | 2020-06-24 04:22 | ER ---
Nurse's Notes [facility] Name: Nery Robertson Age: 45 yrs Sex: Female : 1975 Arrival Date: 06/24/2020 Time: 01:53 Bed 7 Private MD: Diagnosis: COVID Pneumonia;Hypoxia Presentation: 06/24 02:00 Chief complaint: Patient states: i was tested here positive for covid last week and mg2 this is my day 10 symptoms guajardo. my breathing is worsening since yesterday. I have fever, cough. none taken for fever today. i was on prednisone at home. Coronavirus screen: Client denies travel out of the [place] in the last 14 days. Client reports previous positive COVID test result. results are located within the EHR/EMR. Ebola Screen: No symptoms or risks identified at this time. Initial Sepsis Screen: Does the patient meet any 2 criteria? RR > 20 per min. Temp <36.0*C (96.8*F)) or > 38.3*C (100.9*F). HR > 90 bpm. Yes Does the patient have a suspected source of infection? Yes: Productive cough/pneumonia. Risk Assessment: Do you want to hurt yourself or someone else? Patient reports no desire to harm self or others. Onset of symptoms. 02:00 Method Of Arrival: Wheelchair mg2 02:00 Acuity: DANIELLE 1 mg2 Triage Assessment: 04:21 General: Appears in no apparent distress. comfortable, Behavior is calm, cooperative. mg2 Respiratory: Reports feeling better the patient has mild shortness of breath. 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 - Social history:: Smoking status: Patient denies any tobacco usage or history of. Patient uses alcohol, occasionally. Patient/guardian denies using street drugs, IV drugs. Screenin:35 Abuse screen: Denies threats or abuse. Denies injuries from another. Nutritional mg2 screening: No deficits noted. Tuberculosis screening: No symptoms or risk factors identified. Fall Risk IV access (20 points). Assessment: 02:00 Pain: Complains of pain in head Pain currently is 10 out of 10 on a pain scale. Quality mg2 of pain is described as aching, Pain began gradually. Neuro: Level of Consciousness is awake, alert, obeys commands, Oriented to person, place, time, situation. Cardiovascular: Rhythm is sinus tachycardia. 02:00 Respiratory: Airway is patent Respiratory pattern is tachypnea. Respiratory: actively mg2 coughing Breath sounds with rhonchi. GI: No signs and/or symptoms were reported involving the gastrointestinal system. : No signs and/or symptoms were reported regarding the genitourinary system. EENT: No signs and/or symptoms were reported regarding the EENT system. Derm: Skin is intact, is healthy with good turgor, Skin is pink, warm \T\ dry. normal. Musculoskeletal: Circulation, motion, and sensation intact. Capillary refill < 3 seconds. 02:02 General: code sepsis 700 called. mg2 02:15 General: RT started the patient on BIPAP at 50% FIO2. mg2 02:52 Reassessment: lactate 4.9, d dimer 1080 candy from laboratory called, ED provider aware.rr5 03:36 Reassessment: patient sent to CT scan via stretcher with NRM on. patient tolerating the mg2 mask. 04:00 Reassessment: Patient appears in no apparent distress at this time. Patient and/or mg2 family updated on plan of care and expected duration. Pain level reassessed. Patient is alert, oriented x 3, equal unlabored respirations, skin warm/dry/pink. 04:21 Respiratory: Respiratory effort is even, unlabored. mg2 Vital Signs: 02:00 BP 149 / 93; Pulse 110; Resp 27; Temp 102; Pulse Ox 77% on R/A; Weight 80.74 kg; Height mg2 5 ft. 7 in. (170.18 cm); 02:34 BP 134 / 94; Pulse 102; Resp 25; Pulse Ox 100% on BiPAP; mg2 03:59 BP 112 / 75; Pulse 94; Resp 23; Temp 99.5; Pulse Ox 99% on 50% BiPAP; mg2 02:00 Body Mass Index 27.88 (80.74 kg, 170.18 cm) mg2 ED Course: 01:53 Patient arrived in ED. am4 02:00 Asa Desouza MD is Attending Physician. mh7 02:05 EKG done, by ED staff, reviewed by Asa Desouza MD. rr5 02:10 Coy Simon, SAMIRA is Primary Nurse. mg2 02:10 Inserted saline lock: 20 gauge in right antecubital area, using aseptic technique. rr5 Blood collected. 02:10 First set of blood cultures drawn by me. rr5 02:14 Triage completed. mg2 02:14 Arm band placed on. mg2 02:15 Patient has correct armband on for positive identification. Placed in gown. Bed in low rr5 position. Call light in reach. monitoring tech on. Pulse ox on. NIBP on. 02:30 Second set of blood cultures drawn. rr5 02:35 No provider procedures requiring assistance completed. Patient admitted, IV remains in mg2 place. Response to oxygen therapy: symptoms improved. 02:36 Patient has correct armband on for positive identification. mg2 03:01 Inserted saline lock: 20 gauge in left forearm, using aseptic technique. rr5 04:00 Door closed. Pillow given. Assisted to bedside commode. mg2 04:13 BIPAP Sent. sg 04:20 Corby Parra DO is Hospitalizing Provider. mh7 Administered Medications: 02:24 Drug: Decadron - Dexamethasone 6 mg Route: IVP; Site: right antecubital; mg2 03:59 Follow up: Response: No adverse reaction mg2 02:24 Drug: Tylenol 1000 mg Route: PO; mg2 03:58 Follow up: Response: No adverse reaction mg2 02:25 Drug: NS 0.9% (30 ml/kg) 30 ml/kg Route: IV; Rate: bolus; Site: right antecubital; mg2 03:59 Follow up: Response: No adverse reaction; IV Status: Completed infusion; IV Intake: mg2 2000ml 02:36 Drug: Albuterol HFA Inhaler 2 puffs Route: Inhalation; mg2 03:00 Drug: Rocephin - (cefTRIAXone) 1 grams Route: IVPB; Infused Over: 30 mins; Site: right rr5 antecubital; 03:58 Follow up: Response: No adverse reaction; IV Status: Completed infusion mg2 03:03 Drug: Zithromax 500 mg Route: IVPB; Infused Over: 1 hrs; Site: left forearm; mg2 03:03 Drug: Lovenox 1 mg/kg Route: Sub-Q; Site: right lower abdomen; mg2 03:58 Follow up: Response: No adverse reaction mg2 Intake: 03:59 IV: 2000ml; Total: 2000ml. mg2 Outcome: 04:20 Admitted to Tele accompanied by tech, via wheelchair, room 411, with oxygen, with mg2 chart, Report called to SAMIRA Bonilla 04:20 Condition: stable 04:20 Instructed on the need for admit, Demonstrated understanding of instructions. 04:21 Decision to Hospitalize by Provider. [facility] 04:24 Patient left the ED. mg2 Signatures: Noah Landin RN RN sg Coy Simon RN RN mg2 Can Wilburn RN RN rr5 Asa Desouza MD MD 7 [place] Corrections: (The following items were deleted from the chart) 02:54 02:52 Reassessment: lactate 4.9 candy from laboratory called, ED provider aware rr5 rr5 03:07 02:00 Respiratory: actively coughing mg2 mg2 04:05 03:59 BP 112 / 75; Pulse 94bpm; Resp 20bpm; Pulse Ox 99% 02 50% BiPAP; Temp 99.5F; mg2 mg2
[2020-06-24 04:33] LABS: Urine Bacteria >50 /HPF (<20); Urine Mucus 2+ /HPF (NONE SEEN); Urine RBC <5 /HPF (NONE SEEN)
[2020-06-24 06:21] VITALS: BMI 27.8
--- NOTE | 2020-06-24 07:22 | P.PN ---
Subjective Date of Service: 06/24/20 Primary Care Provider: none Chief Complaint: Shortness of breath. Positive COVID Subjective: Other (Patient still with increase cough. Patient currently on BiPAP at 50% FiO2. T-max 100.2) Physical Examination - Vital Signs Temperature: 99.5 F Blood Pressure: 137/78 Pulse: 94 Respirations: 20 Pulse Ox (%): 97 - Studies Laboratory Data (last 24 hrs) 06/24/20 02:12: PT 10.7, INR 0.93, APTT 25.3 06/24/20 02:12: WBC 6.10, Hgb 14.1, Hct 42.8, Plt Count 247 06/24/20 02:12: Sodium 145, Potassium 4.3, BUN 17, Creatinine 0.80, Glucose 144 H, Total Bilirubin 0.2, AST 35, ALT 26, Alkaline Phosphatase 68, Amylase 49, Lipase 124 Assessment & Plan Discharge Plan: Home Plan to discharge in: 72 Hours Physician Review Additional Text: Physical exam: Patient alert, cooperative. Some mild distress noted with increase cough. Heart: Regular rate and rhythm Lungs: Currently on BiPAP at 50% Fi02. Abdomen: Soft nontender nondistended Extremities: Good range of motion to the upper lower extremities Assessment Dyspnea secondary to Acute hypoxic respiratory failure related to bilateral COVID-19 pneumonia Hyperglycemia suspect diabetes mellitus type 2 versus pre diabetes Adult attention deficit disorder Hypothyroidism Plan Dyspnea secondary to Acute hypoxic respiratory failure related to bilateral COVID-19 pneumonia: Patient with increase cough. Will provide cough suppressant. Need to obtain date of positive COVID test. Discussed plan of care including initiation of Remdesivir. Side affects include elevated liver function. After discussion patient agrees to initiating Remdesivir. Continue with IV steroids and supplementation. Patient refused ivermectin. Patient transition to Eliquis to cover for pulmonary embolism risk. Will review CT scan once resulted. Will provide incentive spirometer. Respiratory to continue to wean off. Will trial on high-flow oxygen. Continue monitor lab closely including trending CRP/ferritin and CMP. Blood sugars slightly elevated. Will evaluate for diabetes. Anticipate improvement over the next 72 hr. Hyperglycemia suspect diabetes mellitus type 2 versus pre diabetes: Will check A1c. Will monitor closely. Will place on sliding scale. Patient may require medication pending A1c. Adult Attention deficit disorder: Hold medication. Hypothyroidism: Obtain and verify home medication. Will need to restart medication. Time Spent Managing Pts Care (In Minutes): 55
[2020-06-24] MEDS: INSULIN -REGULAR HUMAN 50 UNIT/0.5 ML ML SQ SCH ×4 (07:30→21:00)
[2020-06-24] MEDS ORDERED: Remdesivir 200 MG in NA CHLORIDE 0.9% 250 ML IV ONE (08:00)
[2020-06-24] MEDS: METHYLPREDNISOLONE 40 MG INJ IV SCH ×2 (08:03→21:15)
[2020-06-24] MEDS: ASCORBIC ACID 500 MG TABLET PO SCH ×4 (08:03→21:15)
[2020-06-24] MEDS: VITAMIN D 1000 UNIT TAB PO SCH (08:04)
[2020-06-24] MEDS: APIXABAN 5 MG TABLET PO SCH ×2 (08:04→21:14)
[2020-06-24] MEDS: THIAMINE HCL 100 MG TABLET PO SCH (08:04)
[2020-06-24] MEDS: ZINC SULFATE 220 MG CAP PO SCH (08:04)
[2020-06-24] MEDS: FAMOTIDINE 20 MG TAB PO SCH ×2 (08:04→21:15)
--- NOTE | 2020-06-24 08:05 | RAD REPORT ---
EXAM DESCRIPTION: RAD - Chest Single View - 06/24/2020 2:33 am CLINICAL HISTORY: Cough;SOB, COVID positive, worsening shortness of breath, fever COMPARISON: None TECHNIQUE: AP portable chest image was obtained 06/24/2020 2:33 am . FINDINGS: Lung volumes are low. Bilateral airspace opacification present worse in each lung base. He art size is normal. Mediastinal silhouette is distorted by low lung volumes and slight rotation. Tort uous vascularity likely contributes as well. Given the history, moderate severity bilateral COVID-19 pneumonia is the most likely etiology. Patter n can occur in influenza pneumonia, organizing pneumonia, drug toxicity and some connective tissue di seases. No measurable pleural effusion and no pneumothorax. No acute bony abnormality seen. No acute aortic findings suspected. IMPRESSION: Moderate severity bilateral COVID-19 pneumonia pattern.
[2020-06-24] MEDS: BENZONATATE 100 MG CAP PO PRN ×2 (08:11→16:21)
[2020-06-24] MEDS ORDERED: Remdesivir 100 MG in NA CHLORIDE 0.9% 250 ML IV SCH (09:00)
[2020-06-24] MEDS ORDERED: ASPIRIN EC 81 MG TAB PO SCH (09:00)
[2020-06-24] MEDS ORDERED: ENOXAPARIN 40 MG/0.4 ML SQ SCH (09:00)
--- NOTE | 2020-06-24 11:53 | P.CNS ---
Date of Consult: 06/24/20 Reason for Consult: pt needs a pcp Requesting Physician: Corby Parra Primary Care Provider: none Chief Complaint: Shortness of breath. Positive COVID History of Present Illness: Patient is a pleasant woman admitted for covid Pneumonia. She has a history of ADHD. She has some elevated blood sugars as well. The patient defines never being able to finish a task. She has been on medications for the past 7 years. Has difficulty doing her job without it. She is tearful about her family getting covid and blames herself. Allergies No Known Allergies Allergy (Verified 07/25/17 23:55) Home Medications: Dextroamphetamine/Amphetamine [Adderall Xr 30 mg Capsule] 1 tab PO DAILY 06/24/20 Triamterene/Hydrochlorothiazid [Triamterene-Hctz 75-50 mg Tab] 1 tab PO DAILY 06/24/20 predniSONE [Prednisone*] 1 tab PO DAILY 06/24/20 - Past Medical/Surgical History Diabetic: Yes -: Hypothyroidism -: Diabetes -: Attention Deficit Disorder -: tubal ligation (2005) Psychosocial/ Personal History: Patient is employed, lives with her 3 children - Social History Alcohol use: Yes CD- Drugs: No Caffeine use: Yes Place of Residence: Home Review of Systems 10-point ROS is otherwise unremarkable Respiratory: Cough, Shortness of Breath Physical Examination Temp Pulse Resp BP Pulse Ox 97.2 F 70 16 111/67 95 06/24/20 08:00 06/24/20 08:00 06/24/20 08:00 06/24/20 08:00 06/24/20 08:00 General: Alert, In no apparent distress HEENT: Atraumatic, PERRLA, Mucous membr. moist/pink, EOMI, Sclerae nonicteric Neck: Supple, 2+ carotid pulse no bruit, No LAD, Without JVD or thyroid abnormality Respiratory: Clear to auscultation bilaterally, Crackles/rales Cardiovascular: Regular rate/rhythm, Normal S1 S2 Gastrointestinal: Normal bowel sounds, No tenderness Musculoskeletal: No tenderness Integumentary: No rashes Neurological: Normal gait, Normal speech, Normal tone, Normal affect Lymphatics: No axilla or inguinal lymphadenopathy Laboratory Data (last 24 hrs) 06/24/20 02:12: PT 10.7, INR 0.93, APTT 25.3 06/24/20 02:12: WBC 6.10, Hgb 14.1, Hct 42.8, Plt Count 247 06/24/20 02:12: Sodium 145, Potassium 4.3, BUN 17, Creatinine 0.80, Glucose 144 H, Total Bilirubin 0.2, AST 35, ALT 26, Alkaline Phosphatase 68, Amylase 49, Lipase 124 - Problems (1) COVID-19 Current Visit: Yes Status: Acute Plan: She is currently under the care of hospitalist. Have dicussed the otc I MASK + protochol with the patient. She can follow up with us after the quarntine. She was short of breath with coughing. May need to do another round of steroids as an out patient. (2) ADHD Current Visit: Yes Status: Acute Plan: Will be able to take over her medications as an out patient. Spent time discussing the disease with the patient. She has a son that she worries about this asa well.. Will have her follow up. (3) HTN (hypertension) Current Visit: Yes Status: Acute Plan: Patient is acutally well controlled. may consider weaning her off the medications. Qualifiers: Hypertension type: essential hypertension Qualified Code(s): I10 - Essential (primary) hypertension Physician Review: Patient Assessed, Agree with Above Assessment and Plan Critical Care: No Time Spent Managing Pts care (In Minutes): 25
--- NOTE | 2020-06-24 22:28 | RAD REPORT ---
EXAM DESCRIPTION: CT - Chest For Pe Angio - 06/24/2020 6:38 am CLINICAL HISTORY: SOB COMPARISON: None Available. TECHNIQUE: CTA of the chest obtained following the uncomplicated intravenous administration of . 3-D /MIP reformatted images of the chest available for evaluation. This exam was performed according to o departmental dose-optimization program, which includes automated exposure control, adjustment of t he mA and/or kV according to patient size and/or use of iterative reconstruction technique. FINDINGS: Chest: Pulmonary arteries: Contrast bolus is adequate.No filling defects identified in the pulmonary arterie s to suggest pulmonary embolus. Dilated main pulmonary artery. This could be seen with pulmonary lisa rial hypertension. Thyroid: No abnormalities of the visualized thyroid. Great Vessels: Great vessels have normal anatomic configuration. Thoracic Aorta: No abnormalities of the thoracic aorta identified. Heart: No cardiomegaly, significant pericardial effusion, or coronary artery atherosclerosis Lymph Nodes: No enlarged mediastinal lymph nodes identified. Esophagus: No abnormalities of the esophagus identified. Other: No additional findings. Lungs: Extensive bilateral central and peripheral groundglass and airspace opacities. Pleura: No pleural effusion or pneumothorax. Trachea/Airways: No abnormalities of the visualized trachea or airways. Bones: Degenerative endplate spondylosis and facet arthropathy. Upper Abdomen: Limited images of the upper abdomen demonstrate no abnormalities visualized spleen. De creased density of the liver.. IMPRESSION: 1. No pulmonary embolus. 2. Extensive bilateral groundglass and airspace opacities. Commonly reported imaging features of vi ral pneumonia are present. Other processes such as influenza pneumonia and organizing pneumonia, as c an be seen with drug toxicity and connective tissue disease, can cause a similar imaging pattern. Pne Typ Reference: https://pubs.[facility]na.org/doi/full/10.1148/[email or web address] 3. Hepatic steatosis. 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 The interpreting radiologist is fully responsible for the content of the report.
[2020-06-25] MEDS: BENZONATATE 100 MG CAP PO PRN (01:29)
[2020-06-25 05:05] LABS: Absolute Lymphocytes (CBC) 0.5 K/uL (0.7-4.9); Basophils % 0.3 % (0-1.3); Hematocrit 34.5 % (36.0-45.0); Lymphocytes % 7.9 % (15.3-44.8); MPV 8.8 fL (7.6-11.3); RBC Red Blood Cell Count 3.73 M/uL (3.86-4.86)
[2020-06-25 05:50] LABS: ALT/SGPT 25 U/L (12-78); AST/SGOT 18 U/L (15-37); Albumin 2.5 g/dL (3.4-5.0); Alkaline Phosphatase 46 U/L (45-117); BUN Blood Urea Nitrogen 18 mg/dL (7-18); Bicarbonate 27 mmol/L (21-32); Bilirubin Direct < 0.1 mg/dL (0-0.2); Bilirubin Total 0.2 mg/dL (0.2-1.0); Glucose Level 133 mg/dL (74-106); HDL Cholesterol 29 mg/dL (40-60); LDL Cholesterol, Calculated 76 (<130); Magnesium 2.4 mg/dL (1.8-2.4); Potassium 3.9 mmol/L (3.5-5.1); Protein, Total 6.3 g/dL (6.4-8.2); Sodium Level 143 mmol/L (136-145); Thyroid Stimulating Hormone 0.315 uIU/mL (0.360-3.740)
[2020-06-25] MEDS: INSULIN -REGULAR HUMAN 50 UNIT/0.5 ML ML SQ SCH ×4 (07:09→21:00)
--- NOTE | 2020-06-25 07:47 | P.PN ---
Subjective Date of Service: 06/25/20 Primary Care Provider: none Chief Complaint: Shortness of breath. Positive COVID Subjective: Other (Patient is slowly improving. Still with cough. Reports pain. Patient down to 6 L per nasal cannula.) Physical Examination - Vital Signs Temperature: 98.0 F Blood Pressure: 110/69 Pulse: 54 Respirations: 20 Pulse Ox (%): 91 Assessment & Plan Discharge Plan: Home Plan to discharge in: 48 Hours Physician Review Additional Text: Initial Chief Complaint: 45-year-old female with Dyspnea secondary to COVID infection Physical exam: Patient alert, cooperative. No significant distress but noted with increased cough. Heart: Regular rate and rhythm Lungs: Currently on 6 L per nasal cannula. Notable cough noted. Abdomen: Soft nontender nondistended Extremities: Good range of motion to the upper lower extremities Assessment Dyspnea secondary to Acute hypoxic respiratory failure related to bilateral COVID-19 pneumonia Hyperglycemia secondary to pre diabetes Adult attention deficit disorder Hypothyroidism Plan Dyspnea secondary to Acute hypoxic respiratory failure related to bilateral COVID-19 pneumonia: Slow improvement noted. Still with cough. Will discontinue Tessalon Perles and change to Robitussin with codeine. Continue to wean down oxygen. Currently on 6 L per nasal cannula. Continue IV Solu-Medrol, Remdesivir and vitamin supplementation. Encourage incentive spirometer, proning and ambulation. Continue with Eliquis. Continue to monitor CRP/ferritin and CMP. Blood sugars slightly elevated. Hemoglobin A1c 6.0. Patient with pre diabetes. Will monitor this closely. Anticipate improvement over the next 48 hr. Patient will likely require oxygen at discharge. I will turn the service over to the hospitalist team tomorrow. I will go plan of care with him. Hyperglycemia secondary to pre diabetes: Hemoglobin A1c 6.0. Patient with pre diabetes. Patient on sliding scale. Will provide education on pre diabetes. Adult Attention deficit disorder: Hold medication. Hypothyroidism: Need to verify diagnosis an if patient is taking medication. Time Spent Managing Pts Care (In Minutes): 55
[2020-06-25] MEDS: FAMOTIDINE 20 MG TAB PO SCH ×2 (08:37→21:46)
[2020-06-25] MEDS: APIXABAN 5 MG TABLET PO SCH ×2 (08:37→21:46)
[2020-06-25] MEDS: ASCORBIC ACID 500 MG TABLET PO SCH ×4 (08:37→21:46)
[2020-06-25] MEDS: ZINC SULFATE 220 MG CAP PO SCH (08:37)
[2020-06-25] MEDS: VITAMIN D 1000 UNIT TAB PO SCH (08:37)
[2020-06-25] MEDS: THIAMINE HCL 100 MG TABLET PO SCH (08:38)
[2020-06-25] MEDS: GUAIFENESIN/CODEINE 5ML UCUP PO PRN ×2 (08:38→15:55)
[2020-06-25] MEDS: METHYLPREDNISOLONE 40 MG INJ IV SCH ×2 (08:38→21:46)
[2020-06-25] MEDS: Remdesivir 100 MG in NA CHLORIDE 0.9% 250 ML IV SCH (09:17)
[2020-06-25 09:57] LABS: Urine Appearance CLEAR; Urine Bilirubin NEGATIVE (NEG); Urine Blood NEGATIVE (NEG); Urine Color YELLOW; Urine Glucose NEGATIVE (NEG); Urine Protein TRACE (NEG); Urine Specific Gravity >=1.030 (1.005-1.030); Urine Urobilinogen 0.2 mg/dL (0.2-1.0)
[2020-06-25 10:10] LABS: Urine Microscopic Reflex ORDER UMIC
[2020-06-25 10:41] LABS: Urine Bacteria <20 /HPF (<20); Urine Mucus 2+ /HPF (NONE SEEN); Urine RBC NONE SEEN /HPF (NONE SEEN)
[2020-06-26 04:19] LABS: Absolute Lymphocytes (CBC) 0.6 K/uL (0.7-4.9); Basophils % 0.1 % (0-1.3); Hematocrit 33.3 % (36.0-45.0); Lymphocytes % 7.6 % (15.3-44.8); MPV 8.8 fL (7.6-11.3)
[2020-06-26 04:50] LABS: ALT/SGPT 69 U/L (12-78); AST/SGOT 68 U/L (15-37); Albumin 2.4 g/dL (3.4-5.0); Alkaline Phosphatase 49 U/L (45-117); BUN Blood Urea Nitrogen 23 mg/dL (7-18); Bicarbonate 28 mmol/L (21-32); Bilirubin Direct < 0.1 mg/dL (0-0.2); Bilirubin Total 0.2 mg/dL (0.2-1.0); Ferritin 171.4 ng/mL (8-388); Glucose Level 135 mg/dL (74-106); Magnesium 2.8 mg/dL (1.8-2.4); Protein, Total 6.2 g/dL (6.4-8.2); Sodium Level 144 mmol/L (136-145)
[2020-06-26 06:16] LABS: Blood Morphology Comment NOT SEEN (NOT SEEN); Platelet Estimate ADEQ; Platelets, Giant FEW
[2020-06-26] MEDS: INSULIN -REGULAR HUMAN 50 UNIT/0.5 ML ML SQ SCH ×4 (07:30→22:14)
[2020-06-26] MEDS: GUAIFENESIN/CODEINE 5ML UCUP PO PRN ×2 (09:28→17:31)
[2020-06-26] MEDS: METHYLPREDNISOLONE 40 MG INJ IV SCH ×2 (09:34→22:13)
[2020-06-26] MEDS: Remdesivir 100 MG in NA CHLORIDE 0.9% 250 ML IV SCH (09:35)
[2020-06-26] MEDS: ZINC SULFATE 220 MG CAP PO SCH (09:35)
[2020-06-26] MEDS: VITAMIN D 1000 UNIT TAB PO SCH (09:35)
[2020-06-26] MEDS: APIXABAN 5 MG TABLET PO SCH ×2 (09:35→22:12)
[2020-06-26] MEDS: ASCORBIC ACID 500 MG TABLET PO SCH ×4 (09:35→22:12)
[2020-06-26] MEDS: THIAMINE HCL 100 MG TABLET PO SCH (09:35)
[2020-06-26] MEDS: FAMOTIDINE 20 MG TAB PO SCH ×2 (09:36→22:12)
[2020-06-26] MEDS ORDERED: PROMETHAZINE-DM 5 ML OSYR PO PRN (16:27)
--- NOTE | 2020-06-26 16:28 | P.CNS ---
Date of Consult: 06/26/20 Reason for Consult: foreman virus pneumonia Primary Care Provider: none Chief Complaint: pneumonia due to foreman virus History of Present Illness: patient is 45 years of age admitted with worsening dyspnea cough shortness of breath patient was diagnosed with foreman virus on June 14 and became progressively worse should she still complains of significant coughing spells Allergies No Known Allergies Allergy (Verified 07/25/17 23:55) Home Medications: Dextroamphetamine/Amphetamine [Adderall Xr 30 mg Capsule] 1 tab PO DAILY 06/24/20 Triamterene/Hydrochlorothiazid [Triamterene-Hctz 75-50 mg Tab] 1 tab PO DAILY 06/24/20 predniSONE [Prednisone*] 1 tab PO DAILY 06/24/20 - Past Medical/Surgical History Diabetic: Yes -: Hypothyroidism -: Diabetes -: Attention Deficit Disorder -: tubal ligation (2005) Psychosocial/ Personal History: Patient is employed, lives with her 3 children - Social History Alcohol use: Yes CD- Drugs: No Caffeine use: Yes Place of Residence: Home Review of Systems General: Weakness Respiratory: Cough, Shortness of Breath Physical Examination Temp Pulse Resp BP Pulse Ox 98.9 F 57 16 136/93 H 96 06/26/20 12:00 06/26/20 12:00 06/26/20 12:00 06/26/20 12:00 06/26/20 12:00 - Problems (1) Pneumonia due to coronavirus disease 2019 Current Visit: Yes Status: Acute Plan: patient is 45 years of age admitted with pneumonia due to foreman virus she is requiring about 8 L of nasal cannula oxygen continue with the steroid I have added some ivermectin full anticoagulation continue to wean 1 dose of Lasix
[2020-06-26] MEDS ORDERED: FUROSEMIDE 20 MG/ 2ML VIAL IV ONE (17:00)
[2020-06-26] MEDS ORDERED: D50W 25 GM/50 ML VIAL IV PRN (17:00)
[2020-06-26] MEDS ORDERED: IVERMECTIN 3 MG TABLET PO ONE (17:00)
[2020-06-26] MEDS ORDERED: ALBUTEROL INHALER 60 PUFF/8 GM IH PRN (17:25)
[2020-06-26] MEDS ORDERED: HYDROCODONE/CHLORPHEN 5 ML/OSYR PO PRN (17:25)
[2020-06-26] MEDS ORDERED: MORPHINE 2 MG/ML SYR IV ONE (17:38)
[2020-06-26] MEDS: BENZONATATE 100 MG CAP PO SCH (22:13)
[2020-06-27 04:56] LABS: Absolute Lymphocytes (CBC) 0.8 K/uL (0.7-4.9); Basophils % 0.3 % (0-1.3); Hematocrit 35.6 % (36.0-45.0); Lymphocytes % 7.7 % (15.3-44.8); MPV 8.1 fL (7.6-11.3); RBC Red Blood Cell Count 3.85 M/uL (3.86-4.86)
[2020-06-27 05:28] LABS: Albumin 2.4 g/dL (3.4-5.0); Bilirubin Direct 0.1 mg/dL (0-0.2); Bilirubin Total 0.3 mg/dL (0.2-1.0); C-Reactive Protein 28.6 mg/L (<3.00); Ferritin 135.7 ng/mL (8-388); Magnesium 2.7 mg/dL (1.8-2.4); Potassium 3.9 mmol/L (3.5-5.1); Protein, Total 6.4 g/dL (6.4-8.2)
[2020-06-27] MEDS: INSULIN -REGULAR HUMAN 50 UNIT/0.5 ML ML SQ SCH ×4 (07:30→21:00)
--- NOTE | 2020-06-27 08:50 | P.PN ---
Subjective Date of Service: 06/26/20 Patient is having multiple episodes of coughing whenever she is awake. She says it causes her start panic and and get really short of breath. Her oxygen level drops as well. She clinically is not doing that well. Will continue to monitor her and her on cough med scheduled. Will do this for about 24-48 hr. She will need an albuterol inhaler as well. She could be having bronchospasms with the coughing. This will benefit her. Hopefully her oxygenation improves. Repeat chest x-ray for symptoms continue to worsen. Review of Systems 10-point ROS is otherwise unremarkable Physical Examination - Vital Signs Temperature: 98.1 F Blood Pressure: 111/70 Pulse: 52 Respirations: 18 Pulse Ox (%): 95 - Physical Exam General: Alert, In no apparent distress, Oriented x3 Respiratory: Expiratory wheezes Cardiovascular: Regular rate/rhythm, Normal S1 S2 Gastrointestinal: Normal bowel sounds, Soft and benign, Non-distended Musculoskeletal: No clubbing, No swelling Neurological: Normal strength at 5/5 x4 extr, Normal tone, Sensation intact, Cranial nerves 3-12 intact Assessment & Plan - Problems (Diagnosis) (1) ADHD Current Visit: Yes Status: Acute (2) HTN (hypertension) Current Visit: Yes Status: Acute Qualifiers: Hypertension type: essential hypertension Qualified Code(s): I10 - Essential (primary) hypertension (3) Pneumonia due to coronavirus disease 2018 Current Visit: Yes Status: Acute - Plan 1. Start cough suppressant 2. Albuterol inhaler 3. Repeat chest x-ray is symptoms are progressively worsening 4. O2 per protocol 5. Pulmonary consultation 6. Continue with IV steroids 7. O2 per protocol 8. Repeat labs including ferritin, CRP 9. GI and DVT prophylaxis Discharge Plan: Home Plan to discharge in: Greater than 2 days - Advance Directives Does patient have a Living Will: No Does patient have a Durable POA for Healthcare: No - Code Status/Comfort Care Code Status Assessed: Yes Code Status: Full Code Physician Review: Patient Assessed, Agree with Above Assessment and Plan Critical Care: No Time Spent Managing PTS Care (In Minutes): 35
[2020-06-27] MEDS ORDERED: POTASSIUM CL SA 10 MEQ TAB PO ONE (09:00)
[2020-06-27] MEDS: GUAIFENESIN/CODEINE 5ML UCUP PO PRN ×2 (09:31→21:00)
[2020-06-27] MEDS: BENZONATATE 100 MG CAP PO SCH ×3 (09:31→20:59)
[2020-06-27] MEDS: Remdesivir 100 MG in NA CHLORIDE 0.9% 250 ML IV SCH (09:31)
[2020-06-27] MEDS: VITAMIN D 1000 UNIT TAB PO SCH (09:31)
[2020-06-27] MEDS: METHYLPREDNISOLONE 40 MG INJ IV SCH ×2 (09:31→21:00)
[2020-06-27] MEDS: FAMOTIDINE 20 MG TAB PO SCH ×2 (09:32→20:59)
[2020-06-27] MEDS: ASCORBIC ACID 500 MG TABLET PO SCH ×4 (09:32→20:59)
[2020-06-27] MEDS: APIXABAN 5 MG TABLET PO SCH ×2 (09:32→21:00)
[2020-06-27] MEDS: ZINC SULFATE 220 MG CAP PO SCH (09:32)
[2020-06-27] MEDS: THIAMINE HCL 100 MG TABLET PO SCH (09:32)
[2020-06-27] MEDS ORDERED: PROMETHAZINE-DM 5 ML OSYR PO PRN (12:04)
--- NOTE | 2020-06-27 12:05 | P.PN ---
Subjective Date of Service: 06/27/20 Primary Care Provider: none Chief Complaint: pneumonia due to foreman virus No change still complaining of coughing and shortness of breath unable to take deep breath still requiring high a L nasal cannula oxygen Review of Systems General: Weakness Respiratory: Cough, Shortness of Breath Physical Examination - Vital Signs Temperature: 98.1 F Blood Pressure: 111/70 Pulse: 52 Respirations: 18 Pulse Ox (%): 95 - Physical Exam General: Alert, Moderate distress Assessment & Plan - Problems (Diagnosis) (1) Pneumonia due to coronavirus disease 2019 Current Visit: Yes Status: Acute Plan: Respiratory failure continue with present therapy patient complaining of significant coughing spell at promethazine with codeine continue with steroids add Brovana and Pulmicort still requiring about 8 L of high-flow oxygen Physician Review: Patient Assessed, Agree with Above Assessment and Plan
[2020-06-27] MEDS: BUDESONIDE 0.5 MG/2 ML NEB NEB SCH ×2 (14:02→20:00)
[2020-06-27] MEDS: ARFORMOTEROL TARTRATE 15 MCG/2 ML VIAL.NEB NEB SCH ×2 (14:02→20:00)
[2020-06-27] MEDS: MELATONIN 5 MG TABLET PO PRN (20:59)
[2020-06-28 04:23] LABS: Absolute Lymphocytes (CBC) 1.1 K/uL (0.7-4.9); Basophils % 0.4 % (0-1.3); Hematocrit 35.9 % (36.0-45.0); Lymphocytes % 8.5 % (15.3-44.8); MPV 8.6 fL (7.6-11.3); RBC Red Blood Cell Count 3.87 M/uL (3.86-4.86)
[2020-06-28 04:44] LABS: ALT/SGPT 98 U/L (12-78); AST/SGOT 23 U/L (15-37); Albumin 2.4 g/dL (3.4-5.0); Alkaline Phosphatase 67 U/L (45-117); BUN Blood Urea Nitrogen 24 mg/dL (7-18); Bicarbonate 29 mmol/L (21-32); Bilirubin Direct < 0.1 mg/dL (0-0.2); Bilirubin Total 0.3 mg/dL (0.2-1.0); Ferritin 97.8 ng/mL (8-388); Glucose Level 216 mg/dL (74-106); Magnesium 2.6 mg/dL (1.8-2.4); Potassium 4.6 mmol/L (3.5-5.1); Protein, Total 6.2 g/dL (6.4-8.2); Sodium Level 140 mmol/L (136-145)
[2020-06-28] MEDS: INSULIN -REGULAR HUMAN 50 UNIT/0.5 ML ML SQ SCH ×4 (07:30→20:43)
[2020-06-28] MEDS: VITAMIN D 1000 UNIT TAB PO SCH (08:59)
[2020-06-28] MEDS: FAMOTIDINE 20 MG TAB PO SCH ×2 (08:59→20:42)
[2020-06-28] MEDS: BENZONATATE 100 MG CAP PO SCH ×3 (08:59→20:42)
[2020-06-28] MEDS: ASCORBIC ACID 500 MG TABLET PO SCH ×4 (09:00→20:42)
[2020-06-28] MEDS: THIAMINE HCL 100 MG TABLET PO SCH (09:00)
[2020-06-28] MEDS: METHYLPREDNISOLONE 40 MG INJ IV SCH ×2 (09:00→20:42)
[2020-06-28] MEDS: APIXABAN 5 MG TABLET PO SCH ×2 (09:00→20:42)
[2020-06-28] MEDS: ZINC SULFATE 220 MG CAP PO SCH (09:00)
[2020-06-28] MEDS: Remdesivir 100 MG in NA CHLORIDE 0.9% 250 ML IV SCH (09:02)
[2020-06-28] MEDS: GUAIFENESIN/CODEINE 5ML UCUP PO PRN (09:09)
[2020-06-28] MEDS: ARFORMOTEROL TARTRATE 15 MCG/2 ML VIAL.NEB NEB SCH ×2 (09:20→20:07)
[2020-06-28] MEDS: BUDESONIDE 0.5 MG/2 ML NEB NEB SCH ×2 (09:20→20:07)
[2020-06-28] MEDS ORDERED: IVERMECTIN 3 MG TABLET PO ONE ×2 (12:31→15:00)
--- NOTE | 2020-06-28 12:32 | P.PN ---
Subjective Date of Service: 06/28/20 Primary Care Provider: none Chief Complaint: pneumonia due to foreman virus Patient is 45 years of age admitted with foreman virus pneumonia she is doing much better coughing has improved plan to discharge home on prednisone 20 b.i.d. for 1 week then 10 twice a day Review of Systems General: Weakness Respiratory: Cough, Shortness of Breath Physical Examination - Vital Signs Temperature: 97.9 F Blood Pressure: 126/81 Pulse: 64 Respirations: 16 Pulse Ox (%): 96 Assessment & Plan - Problems (Diagnosis) (1) Pneumonia due to coronavirus disease 2018 Current Visit: Yes Status: Acute Plan: Patient is doing much better on 4 L nasal cannula oxygen plan for discharge on prednisone 1 dose of ivermectin given prior to discharge patient will also need an inhaler her coughing has not follow-up with me in 2 weeks Physician Review: Patient Assessed, Agree with Above Assessment and Plan
[2020-06-28] MEDS ORDERED: MORPHINE 2 MG/ML SYR IV ONE (13:28)
[2020-06-28 17:51] LABS: Urine Appearance CLEAR; Urine Bilirubin NEGATIVE (NEG); Urine Blood NEGATIVE (NEG); Urine Color YELLOW; Urine Glucose NEGATIVE (NEG); Urine Protein NEGATIVE (NEG); Urine Specific Gravity >=1.030 (1.005-1.030)
[2020-06-28 17:54] LABS: Urine Microscopic Reflex NO UMIC
[2020-06-29] MEDS: MELATONIN 5 MG TABLET PO PRN (00:40)
[2020-06-29 04:36] LABS: Absolute Lymphocytes (CBC) 1.1 K/uL (0.7-4.9); Basophils % 0.1 % (0-1.3); Hematocrit 37.6 % (36.0-45.0); Lymphocytes % 8.3 % (15.3-44.8); MPV 8.2 fL (7.6-11.3); RBC Red Blood Cell Count 4.06 M/uL (3.86-4.86)
[2020-06-29 04:57] LABS: Albumin 2.4 g/dL (3.4-5.0); Bilirubin Total 0.4 mg/dL (0.2-1.0); C-Reactive Protein 13.3 mg/L (<3.00); Ferritin 87.4 ng/mL (8-388); Magnesium 2.4 mg/dL (1.8-2.4); Potassium 4.7 mmol/L (3.5-5.1)
[2020-06-29] MEDS ORDERED: IVERMECTIN 3 MG TABLET PO ONE (05:00)
[2020-06-29] MEDS: INSULIN -REGULAR HUMAN 50 UNIT/0.5 ML ML SQ SCH ×3 (07:30→16:30)
[2020-06-29] MEDS: BUDESONIDE 0.5 MG/2 ML NEB NEB SCH (08:00)
[2020-06-29] MEDS: ARFORMOTEROL TARTRATE 15 MCG/2 ML VIAL.NEB NEB SCH (08:00)
--- NOTE | 2020-06-29 08:17 | P.PN ---
Date of Service: 06/27/20 Subjective Patient continues to gradually improve. Her clinical condition is getting better and her oxygen is down to 8 L. Will try to aggressively titrate her down over the next 24 hr and anticipate discharge over the next 24-48 hr. Review of Systems 10-point ROS is otherwise unremarkable Physical Examination - Vital Signs Reviewed - Physical Exam General: Alert, In no apparent distress, Oriented x3 Respiratory: Expiratory wheezes Cardiovascular: Regular rate/rhythm, Normal S1 S2 Gastrointestinal: Normal bowel sounds, Soft and benign, Non-distended Musculoskeletal: No clubbing, No swelling Neurological: Normal strength at 5/5 x4 extr, Normal tone, Sensation intact, Cranial nerves 3-12 intact Assessment & Plan - Problems (Diagnosis) (1) ADHD Current Visit: Yes Status: Acute (2) HTN (hypertension) Current Visit: Yes Status: Acute Qualifiers: Hypertension type: essential hypertension Qualified Code(s): I10 - Essential (primary) hypertension (3) Pneumonia due to coronavirus disease 2018 Current Visit: Yes Status: Acute - Plan Continue w/ plan of care as mentioned below 1. Start cough suppressant 2. Albuterol inhaler 3. Repeat chest x-ray is symptoms are progressively worsening 4. O2 per protocol 5. Pulmonary consultation 6. Continue with IV steroids 7. O2 per protocol 8. Repeat labs including ferritin, CRP 9. GI and DVT prophylaxis Discharge Plan: Home Plan to discharge in: Greater than 2 days - Advance Directives Does patient have a Living Will: No Does patient have a Durable POA for Healthcare: No - Code Status/Comfort Care Code Status Assessed: Yes Code Status: Full Code Physician Review: Patient Assessed, Agree with Above Assessment and Plan Critical Care: No Time Spent Managing PTS Care (In Minutes): 35
--- NOTE | 2020-06-29 08:19 | P.PN ---
Date of Service: 06/28/20 Subjective Patient continuing to improve with no new complaints. Oxygenation is improving. Anticipate discharge today. She is having persistent coughing and she states that she is having a hard time with dealing with her coughing. All schedule her cough suppressant and will see how that helps her. If her cough is stable and she does not desat then we will discharge her today Review of Systems 10-point ROS is otherwise unremarkable Physical Examination - Vital Signs Reviewed - Physical Exam General: Alert, In no apparent distress, Oriented x3 Respiratory: Expiratory wheezes Cardiovascular: Regular rate/rhythm, Normal S1 S2 Gastrointestinal: Normal bowel sounds, Soft and benign, Non-distended Musculoskeletal: No clubbing, No swelling Neurological: Normal strength at 5/5 x4 extr, Normal tone, Sensation intact, Cranial nerves 3-12 intact Assessment & Plan - Problems (Diagnosis) (1) ADHD Current Visit: Yes Status: Acute (2) HTN (hypertension) Current Visit: Yes Status: Acute Qualifiers: Hypertension type: essential hypertension Qualified Code(s): I10 - Essential (primary) hypertension (3) Pneumonia due to coronavirus disease 2018 Current Visit: Yes Status: Acute - Plan Continue w/ plan of care as mentioned below 1. Start cough suppressant; I will go ahead and make this scheduled. Her cough is her biggest issue and she gets really short of breath and hypoxic whenever she coughs. I feel she wound up back in the hospital if we let her go home with her coughing not controlled. Anticipate today or at least by the morning time 2. Albuterol inhaler 3. Repeat chest x-ray is symptoms are progressively worsening 4. O2 per protocol 5. Pulmonary consultation appreciated 6. Continue with IV steroids 7. GI and DVT prophylaxis
[2020-06-29] MEDS: VITAMIN D 1000 UNIT TAB PO SCH (09:13)
[2020-06-29] MEDS: THIAMINE HCL 100 MG TABLET PO SCH (09:13)
[2020-06-29] MEDS: FAMOTIDINE 20 MG TAB PO SCH (09:13)
[2020-06-29] MEDS: BENZONATATE 100 MG CAP PO SCH ×2 (09:13→14:32)
[2020-06-29] MEDS: METHYLPREDNISOLONE 40 MG INJ IV SCH (09:14)
[2020-06-29] MEDS: ZINC SULFATE 220 MG CAP PO SCH (09:14)
[2020-06-29] MEDS: ASCORBIC ACID 500 MG TABLET PO SCH ×3 (09:14→17:31)
[2020-06-29] MEDS: APIXABAN 5 MG TABLET PO SCH (09:14)
[2020-06-29 16:43] VITALS: BP 124/79; TEMP 98.3
[2020-06-29 19:02] VITALS: O2SAT 95
[2020-06-29] MEDS ORDERED: METHYLPREDNISOLONE 125 MG INJ IV SCH (21:00)
[2020-06-30] MEDS ORDERED: IVERMECTIN 3 MG TABLET PO ONE (13:00)
--- NOTE | 2020-07-18 01:52 | P.DS ---
Discharge Date: 06/29/20 Primary Care Provider: none Disposition: ROUTINE DISCHARGE Discharge Condition: GOOD Reason for Admission: pneumonia due to foreman virus - Problems (1) ADHD Status: Acute (2) HTN (hypertension) Status: Acute Qualifiers: Hypertension type: essential hypertension Qualified Code(s): I10 - Essential (primary) hypertension (3) Pneumonia due to coronavirus disease 2018 Status: Acute Brief History of Present Illness: Patient is a 45-year-old female with history of diabetes mellitus type 2 not on any medications presents emergency department for shortness of breath. Patient diagnosed with foreman virus on 06/14/2020 with worsening shortness of breath over the course the last couple days. Upon arrival to the emergency department patient hypoxic 77% on room air, placed on BiPAP which she is tolerating well. Workup in the ED significant for initial lactic acid 4.9, patient did receive sepsis bolus in the emergency department D-dimer 1000 ED given full dose Lovenox in the ER pending CT PE protocol. ED provider wishes to admit patient for further evaluation and management. Hospital Course: Patient has improved throughout hospitalization. Currently on wall nasal canu lla. We will arrange for home oxygen and after we arrange for home oxygen patient is stable for discharge home. Continue oral steroids has was inhaler therapy and cough medication as needed. Patient will need outpatient follow with pulmonary as well. Vital Signs/Physical Exam: Temp Pulse Resp BP Pulse Ox 98.3 F 58 16 124/79 95 06/29/20 16:00 06/29/20 16:00 06/29/20 16:00 06/29/20 16:00 06/29/20 16:00 General: Alert, In no apparent distress, Oriented x3 Laboratory Data at Discharge: WBC 13.30 K/uL (4.3-10.9) H 06/29/20 03:59 Hgb 12.4 g/dL (12.0-15.0) 06/29/20 03:59 Hct 37.6 % (36.0-45.0) 06/29/20 03:59 Plt Count 359 K/uL (152-406) 06/29/20 03:59 PT 10.7 SECONDS (9.5-12.5) 06/24/20 02:12 INR 0.93 06/24/20 02:12 APTT 25.3 SECONDS (24.3-36.9) 06/24/20 02:12 Sodium 139 mmol/L (136-145) 06/29/20 03:59 Potassium 4.7 mmol/L (3.5-5.1) 06/29/20 03:59 BUN 19 mg/dL (7-18) H 06/29/20 03:59 Creatinine 0.75 mg/dL (0.55-1.3) 06/29/20 03:59 Glucose 180 mg/dL (74-106) H 06/29/20 03:59 Magnesium 2.4 mg/dL (1.8-2.4) 06/29/20 03:59 Total Bilirubin 0.4 mg/dL (0.2-1.0) 06/29/20 03:59 AST 19 U/L (15-37) 06/29/20 03:59 ALT 77 U/L (12-78) 06/29/20 03:59 Alkaline Phosphatase 74 U/L (45-117) 06/29/20 03:59 Triglycerides 56 mg/dL (<150) 06/25/20 03:49 Cholesterol 116 mg/dL (<200) 06/25/20 03:49 HDL Cholesterol 29 mg/dL (40-60) L 06/25/20 03:49 Cholesterol/HDL Ratio 4.00 06/25/20 03:49 Amylase 49 U/L (25-115) 06/24/20 02:12 Lipase 124 U/L (73-393) 06/24/20 02:12 Home Medications: Dextroamphetamine/Amphetamine [Adderall Xr 30 mg Capsule] 1 tab PO DAILY 06/24/20 Triamterene/Hydrochlorothiazid [Triamterene-Hctz 75-50 mg Tab] 1 tab PO DAILY 06/24/20 predniSONE [Prednisone*] 1 tab PO DAILY 06/24/20 Albuterol Inhaler [Ventolin Inhaler*] 2 puff IH Q6H PRN #1 hfa.aer.ad 06/29/20 Apixaban [Eliquis] 5 mg PO BID #60 tablet 06/29/20 Arformoterol Tartrate [Brovana] 15 mcg NEB BIDRESP #60 vial.neb 06/29/20 Ascorbic Acid [Vitamin C*] 500 mg PO QID #30 tablet 06/29/20 Benzonatate [Tessalon Perle*] 200 mg PO TID #60 cap 06/29/20 Budesonide [Pulmicort*] 0.5 mg NEB BIDRESP #60 amp 06/29/20 Cholecalciferol (Vitamin D3) [Vitamin D 1000 Iu Tab*] 4,000 unit PO DAILY #30 tab 06/29/20 Famotidine [Pepcid*] 20 mg PO BID #60 tab 06/29/20 Hydrocodone/Chlorphen Polis [Tussionex Oral Susp] 5 ml PO Q12HR #100 ml 06/29/20 Levalbuterol [Xopenex] 1 amp NEB Q6H PRN #60 vial 06/29/20 Melatonin 5 mg PO BEDTIME PRN PRN #30 tablet 06/29/20 Nebulizer Accessories [Aeroneb Go] 1 each MC DAILY #1 each 06/29/20 Nebulizer [Aeroneb Go Nebulizer] 1 each MC DAILY #1 each 06/29/20 predniSONE [Prednisone*] 20 mg PO BID #24 tab 06/29/20 New Medications: Nebulizer Accessories [Aeroneb Go] 1 each MC DAILY #1 each Nebulizer [Aeroneb Go Nebulizer] 1 each MC DAILY #1 each Arformoterol Tartrate [Brovana] 15 mcg NEB BIDRESP #60 vial.neb Apixaban [Eliquis] 5 mg PO BID #60 tablet Melatonin 5 mg PO BEDTIME PRN PRN #30 tablet PRN Reason: Insomnia Famotidine [Pepcid*] 20 mg PO BID #60 tab predniSONE [Prednisone*] 20 mg PO BID #24 tab Budesonide [Pulmicort*] 0.5 mg NEB BIDRESP #60 amp Benzonatate [Tessalon Perle*] 200 mg PO TID #60 cap Hydrocodone/Chlorphen Polis [Tussionex Oral Susp] 5 ml PO Q12HR #100 ml Albuterol Inhaler [Ventolin Inhaler*] 2 puff IH Q6H PRN #1 hfa.aer.ad PRN Reason: Shortness Of Breath Ascorbic Acid [Vitamin C*] 500 mg PO QID #30 tablet Cholecalciferol (Vitamin D3) [Vitamin D 1000 Iu Tab*] 4,000 unit PO DAILY #30 tab Levalbuterol [Xopenex] 1 amp NEB Q6H PRN #60 vial PRN Reason: Shortness Of Breath Physician Discharge Instructions: OK TO DC IV AND DC HOME FOLLOW-UP WITH PRIMARY CARE PROVIDER IN 1-2 WEEKS Follow-up with Pulmonary in 1-2 weeks RETURN TO THE ER IF symptoms worsen CALL or TEXT DR. XIE AT [phone] IF ANY QUESTIONS REGARDING HOSPITAL STAY. PLEASE CALL THE FLOOR AT [phone] IF ANY MEDICATION OR NURSING QUESTIONS. 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
== END 2020-06-29 19:41 | disposition home or self-care (01) | DRG 177 ==
LOC: ER 01:49 → ERHOLD 02:47 → 4TH 04:21
PROVIDERS: ADMIT Family Medicine; ATTEND Hospitalist
PROC: XW033E5 Introduction of Remdesivir Anti-infective into Peripheral Vein, Percutaneous Approach, New Technology Group 5 (ICD-10-PCS; principal; 2020-06-24)
PROC: 5A09557 Assistance with Respiratory Ventilation, Greater than 96 Consecutive Hours, Continuous Positive Airway Pressure (ICD-10-PCS; 2020-06-24)
DX: U07.1 COVID-19 (principal); J12.82 Pneumonia due to coronavirus disease 2019; J96.01 Acute respiratory failure with hypoxia; E03.9 Hypothyroidism, unspecified; F90.9 Attention-deficit hyperactivity disorder, unspecified type; Z79.52 Long term (current) use of systemic steroids; Z98.51 Tubal ligation status; Z90.49 Acquired absence of other specified parts of digestive tract; Z79.899 Other long term (current) drug therapy
CPT/HCPCS: 36415; 71045; 71275; 80048; 80053; 80061; 80076; 81003; 81015; 81025; 82150; 82248; 82550; 82553; 82728; 82947; 83036; 83605; 83690; 83735; 84145; 84439; 84443; 84484; 85025; 85379; 85610; 85730; 86140; 87040; 87086; 87088; 93005; 94010; 94640; 94660; 96372; 99291; 99292; J0456; J0696; J1100; J1940; J2270; J2920; J7030; J7050; J7605; Q9967